=== PATIENT | female | born 1960 | race Caucasian/White ===

== ENCOUNTER 2020-11-22 18:25 | Observation (INO) | payer OTHER ==
--- OUTSIDE RECORDS SUMMARY | 2020-11-22 18:28 | XMS REPORT | Clinical Summary ---
:1960 Author Organization [facility] Address [address] [place] [address] Care Team Providers Name Role Phone Jocy Primary Care Provider Allergies Not on File Medications Not on file Active Problems Not on file Social History Tobacco Use Types Packs/Day Years Used Date Never Assessed Sex Assigned at Date Recorded Not on file Last Filed Vital Signs Not on file Plan of Treatment Not on file Results Not on fileafter 11/22/2019 Insurance Payer Benefit Plan / Subscriber ID Effective Dates Phone Addre ss Type Group [employer] - MGD [employer] HMO POS [id number] 2015-Present HMO/POS CARE QPOS
--- OUTSIDE RECORDS SUMMARY | 2020-11-22 18:29 | XMS REPORT | Continuity of Care Document ---
:1960 Author Organization [facility] t Address [address] [place] [address] Care Team Providers Name Role Phone Jocy Primary Care Physician Payers Payer Name Policy Type Policy Number Effective Date Expiration Date S ource Problems This patient has no known problems. Allergies, Adverse Reactions, Alerts Allergy Allergy Status Severity Reaction(s) Onset Inactive Treating Comm ents Source Name Type Date Date Clinician No Known DA Active U [facility] Allergie 2-21 Clear s 00:00: Garcia [address] [place] [address] Social History Social Habit Start Date Stop Date Quantity Comments Source Sex Assigned At [facility] Medications This patient has no known medications. Procedures This patient has no known procedures. Results Test Description Test Time Test Comments Results Result Comments Source STOMACH,RESECTION 2020-05-09 NOT TUMOR 15:36:00 RUN DATE: 05/09/20 [facility] PAGE 1 RUN TIME: 1536 Specimen Inquiry RUN USER: INTERFACE SINAI IENT: VERA ALMODOVAR LOC: YUSRA U #: [id number] AGE/SX: 60/F ROOM: [facility] RE05/06/20REG DR: Ana Lilia Salazar MD : 56 BED: A DIS: 05/08/20 STATUS: DIS IN TLOC: SPEC #: [id number] RECD: 05/06/20 STATUS: LIA DOWDMartha #: [id number] KANDIS: 05/06/20- SUBM DR: Ana Lilia Salazar MD ENTERED: 05/06/20 SP TYPE: STOM NOT OTHR DR: No Primary or Family Physician Maikel Bartlett MDORDERED: GROSS COPIES TO: No Primary or Family Physician Ana Lilia Salazar MD [address] [place], [place] [address] Maikel Bartlett [place] [address] [address] [place] [address] PROCEDURES: GROSS (05/09/20-1434) TISSUES: STOMACH, NOS - PORTION OF STOMACH CLINICAL HISTORY COLLECTION DATE: 05/06/20 [facility]ES[facility] FINAL DIAGNOSIS Portion of stomach, laparoscopic sleeve gastrectomy: PORTION OF STOMACH, NO PATHOLOGIC ALTERATION DMW/sm D [id number] MACROSCOPIC The specimen is received in formalin, labeled with the patient's name, identified as "portion of stomach", and consists of a portion of stomach measuring 23 cm in length by up to 4.5 cm in diameter. There is scant attached adipose tissue present. The serosa is thorpe-pink and glistening. The specimen CONTINUED ON NEXT PAGE RUN DATE: 05/09/20 [facility] PAGE 2 RUN TIME: 1535 Specimen Inquiry RUN USER: INTERFACE LIZZ Benjamin #: [id number] PATIENT: VERA ALMODOVAR #[id number] (Continued)-------- -------- MACROSCOPIC (Continued) is opened to reveal thorpe-pink glistening mucosa with foci of flattened gastric folds. No mass is identified. Courtesy Booth Cashier sections are in a single cassette. GROSS PERFORMED AT [facility] [address] [place] [address], [place] [address] [phone])[phone] MICROSCOPIC All of the stains, including any controls performed, stain appropriately. MICROSCOPIC PERFORMED AT [facility] [address] [facility], [place] [address] [phone])[phone] PERFORMING SITE Diagnosis performed at: [facility] [address] [place] [address] ------- --------- Signed SIGNATURE ON FILE Shea Donohue MD 05/09/20 1536 END OF REPORT CBC W/AUTO DIFF 2020-05-08 12:11:00 Test Item Value Reference Range Interpretation Comme nts WHITE BLOOD CELL (test code = WBC) 17.0 K/mm3 4.5-12.5 H RED BLOOD CELL (test code = RBC) 4.55 mill/mm3 3.7-5.2 N HEMOGLOBIN (test code = HGB) 13.9 gram/dL 11.5-15.5 N HEMATOCRIT (test code = HCT) 42.3 % 36.0-46.0 N MEAN CELL VOLUME (test code = MCV) 93.0 fL 80-98 N MEAN CELL HGB (test code = MCH) 30.5 picogram 27.0-33.0 N MEAN CELL HGB CONCETRATION (test code = MCHC) 32.9 gram/dL 33.0-36. 0 L RED CELL DISTRIBUTION WIDTH (test code = RDW) 13.5 % 11.6-16. 2 N RED CELL DISTRIBUTION WIDTH SD (test code = 46.4 fL 37.0-51.0 N RDW-SD) PLATELET COUNT (test code = PLT) 270 K/mm3 150-450 N MEAN PLATELET VOLUME (test code = MPV) 10.8 fL 6.7-11.0 N NEUTROPHIL % (test code = NT%) 74.1 % 39.0-69.0 H IMMATURE GRANULOCYTE % (test code = IG%) 0.5 % 0.0-5.0 N LYMPHOCYTE % (test code = LY%) 17.0 % 25.0-55.0 L MONOCYTE % (test code = MO%) 7.6 % 0.0-10.0 N EOSINOPHIL % (test code = EO%) 0.4 % 0.0-5.0 N BASOPHIL % (test code = BA%) 0.4 % 0.0-1.0 N NUCLEATED RBC % (test code = NRBC%) 0.0 % 0-0 N NEUTROPHIL # (test code = NT#) 12.62 K/mm3 1.8-7.7 H IMMATURE GRANULOCYTE # (test code = IG#) 0.08 x10 3/uL 0-0.03 H LYMPHOCYTE # (test code = LY#) 2.90 K/mm3 1.0-5.0 N MONOCYTE # (test code = MO#) 1.29 K/mm3 0-0.8 H EOSINOPHIL # (test code = EO#) 0.07 K/mm3 0.0-0.5 N BASOPHIL # (test code = BA#) 0.06 K/mm3 0.0-0.2 N NUCLEATED RBC # (test code = NRBC#) 0.00 K/mm3 0.0-0.1 N MANUAL DIFF REQUIRED (test code = MDIFF) NO, ONLY SCAN NEEDED DIFFERENTIAL [id number] 12:11:00 Test Item Value Reference Range Interpretation Comments STAIN ACCEPTABILITY (test STAIN ACCEPTABLE code = STN ACCEPTABLE) MORPHOLOGY COMMENT (test NORMAL code = MOC) PLATELET ESTIMATE (test code ADEQUATE = PLTEST) PLATELET MORPHOLOGY (test NORMAL code = PLTMORPH) CBC W/AUTO [id number] 10:26:00 Test Item Value Reference Range Interpretation Comments WHITE BLOOD CELL (test 17.0 K/mm3 4.5-12.5 H code = WBC) RED BLOOD CELL (test code 4.55 mill/mm3 3.7-5.2 N = RBC) HEMOGLOBIN (test code = 13.9 gram/dL 11.5-15.5 N HGB) HEMATOCRIT (test code = 42.3 % 36.0-46.0 N HCT) MEAN CELL VOLUME (test 93.0 fL 80-98 N code = MCV) MEAN CELL HGB (test code 30.5 picogram 27.0-33.0 N = MCH) MEAN CELL HGB 32.9 gram/dL 33.0-36.0 L CONCETRATION (test code = MCHC) RED CELL DISTRIBUTION 13.5 % 11.6-16.2 N WIDTH (test code = RDW) RED CELL DISTRIBUTION 46.4 fL 37.0-51.0 N WIDTH SD (test code = RDW-SD) PLATELET COUNT (test code 270 K/mm3 150-450 N = PLT) MEAN PLATELET VOLUME 10.8 fL 6.7-11.0 N (test code = MPV) NEUTROPHIL % (test code = 74.1 % 39.0-69.0 H NT%) IMMATURE GRANULOCYTE % 0.5 % 0.0-5.0 N (test code = IG%) LYMPHOCYTE % (test code = 17.0 % 25.0-55.0 L LY%) MONOCYTE % (test code = 7.6 % 0.0-10.0 N MO%) EOSINOPHIL % (test code = 0.4 % 0.0-5.0 N EO%) BASOPHIL % (test code = 0.4 % 0.0-1.0 N BA%) NUCLEATED RBC % (test 0.0 % 0-0 N code = NRBC%) NEUTROPHIL # (test code = 12.62 K/mm3 1.8-7.7 H NT#) IMMATURE GRANULOCYTE # 0.08 x10 3/uL 0-0.03 H (test code = IG#) LYMPHOCYTE # (test code = 2.90 K/mm3 1.0-5.0 N LY#) MONOCYTE # (test code = 1.29 K/mm3 0-0.8 H MO#) EOSINOPHIL # (test code = 0.07 K/mm3 0.0-0.5 N EO#) BASOPHIL # (test code = 0.06 K/mm3 0.0-0.2 N BA#) NUCLEATED RBC # (test 0.00 K/mm3 0.0-0.1 N code = NRBC#) MANUAL DIFF REQUIRED NO, ONLY SCAN NEEDED (test code = MDIFF) DIFFERENTIAL [id number] 10:26:00 Test Item Value Reference Range Interpretation Comments STAIN ACCEPTABILITY (test code = STN ACCEPTABLE) CABOT RINGS (test code = CAB) MORPHOLOGY COMMENT (test code = MOC) PLATELET ESTIMATE (test code = PLTEST) PLATELET MORPHOLOGY (test code = PLTMORPH) CBC W/AUTO [id number] 10:26:00 Test Item Value Reference Range Interpretation Comments WHITE BLOOD CELL (test 17.0 K/mm3 4.5-12.5 H code = WBC) RED BLOOD CELL (test code 4.55 mill/mm3 3.7-5.2 N = RBC) HEMOGLOBIN (test code = 13.9 gram/dL 11.5-15.5 N HGB) HEMATOCRIT (test code = 42.3 % 36.0-46.0 N HCT) MEAN CELL VOLUME (test 93.0 fL 80-98 N code = MCV) MEAN CELL HGB (test code 30.5 picogram 27.0-33.0 N = MCH) MEAN CELL HGB 32.9 gram/dL 33.0-36.0 L CONCETRATION (test code = MCHC) RED CELL DISTRIBUTION 13.5 % 11.6-16.2 N WIDTH (test code = RDW) RED CELL DISTRIBUTION 46.4 fL 37.0-51.0 N WIDTH SD (test code = RDW-SD) PLATELET COUNT (test code 270 K/mm3 150-450 N = PLT) MEAN PLATELET VOLUME 10.8 fL 6.7-11.0 N (test code = MPV) NEUTROPHIL % (test code = 74.1 % 39.0-69.0 H NT%) IMMATURE GRANULOCYTE % 0.5 % 0.0-5.0 N (test code = IG%) LYMPHOCYTE % (test code = 17.0 % 25.0-55.0 L LY%) MONOCYTE % (test code = 7.6 % 0.0-10.0 N MO%) EOSINOPHIL % (test code = 0.4 % 0.0-5.0 N EO%) BASOPHIL % (test code = 0.4 % 0.0-1.0 N BA%) NUCLEATED RBC % (test 0.0 % 0-0 N code = NRBC%) NEUTROPHIL # (test code = 12.62 K/mm3 1.8-7.7 H NT#) IMMATURE GRANULOCYTE # 0.08 x10 3/uL 0-0.03 H (test code = IG#) LYMPHOCYTE # (test code = 2.90 K/mm3 1.0-5.0 N LY#) MONOCYTE # (test code = 1.29 K/mm3 0-0.8 H MO#) EOSINOPHIL # (test code = 0.07 K/mm3 0.0-0.5 N EO#) BASOPHIL # (test code = 0.06 K/mm3 0.0-0.2 N BA#) NUCLEATED RBC # (test 0.00 K/mm3 0.0-0.1 N code = NRBC#) MANUAL DIFF REQUIRED NO, ONLY SCAN NEEDED (test code = MDIFF) DIFFERENTIAL [id number] 10:26:00 Test Item Value Reference Range Interpretation Comments STAIN ACCEPTABILITY (test code = STN ACCEPTABLE) CABOT RINGS (test code = CAB) MORPHOLOGY COMMENT (test code = MOC) PLATELET ESTIMATE (test code = PLTEST) PLATELET MORPHOLOGY (test code = PLTMORPH) CBC W/AUTO [id number] 10:26:00 Test Item Value Reference Range Interpretation Comments WHITE BLOOD CELL (test 17.0 K/mm3 4.5-12.5 H code = WBC) RED BLOOD CELL (test code 4.55 mill/mm3 3.7-5.2 N = RBC) HEMOGLOBIN (test code = 13.9 gram/dL 11.5-15.5 N HGB) HEMATOCRIT (test code = 42.3 % 36.0-46.0 N HCT) MEAN CELL VOLUME (test 93.0 fL 80-98 N code = MCV) MEAN CELL HGB (test code 30.5 picogram 27.0-33.0 N = MCH) MEAN CELL HGB 32.9 gram/dL 33.0-36.0 L CONCETRATION (test code = MCHC) RED CELL DISTRIBUTION 13.5 % 11.6-16.2 N WIDTH (test code = RDW) RED CELL DISTRIBUTION 46.4 fL 37.0-51.0 N WIDTH SD (test code = RDW-SD) PLATELET COUNT (test code 270 K/mm3 150-450 N = PLT) MEAN PLATELET VOLUME 10.8 fL 6.7-11.0 N (test code = MPV) NEUTROPHIL % (test code = 74.1 % 39.0-69.0 H NT%) IMMATURE GRANULOCYTE % 0.5 % 0.0-5.0 N (test code = IG%) LYMPHOCYTE % (test code = 17.0 % 25.0-55.0 L LY%) MONOCYTE % (test code = 7.6 % 0.0-10.0 N MO%) EOSINOPHIL % (test code = 0.4 % 0.0-5.0 N EO%) BASOPHIL % (test code = 0.4 % 0.0-1.0 N BA%) NUCLEATED RBC % (test 0.0 % 0-0 N code = NRBC%) NEUTROPHIL # (test code = 12.62 K/mm3 1.8-7.7 H NT#) IMMATURE GRANULOCYTE # 0.08 x10 3/uL 0-0.03 H (test code = IG#) LYMPHOCYTE # (test code = 2.90 K/mm3 1.0-5.0 N LY#) MONOCYTE # (test code = 1.29 K/mm3 0-0.8 H MO#) EOSINOPHIL # (test code = 0.07 K/mm3 0.0-0.5 N EO#) BASOPHIL # (test code = 0.06 K/mm3 0.0-0.2 N BA#) NUCLEATED RBC # (test 0.00 K/mm3 0.0-0.1 N code = NRBC#) MANUAL DIFF REQUIRED NO, ONLY SCAN NEEDED (test code = MDIFF) DIFFERENTIAL [id number] 10:26:00 Test Item Value Reference Range Interpretation Comments STAIN ACCEPTABILITY (test code = STN ACCEPTABLE) MORPHOLOGY COMMENT (test code = MOC) PLATELET ESTIMATE (test code = PLTEST) PLATELET MORPHOLOGY (test code = PLTMORPH) CBC W/AUTO [id number] 10:26:00 Test Item Value Reference Range Interpretation Comments WHITE BLOOD CELL (test 17.0 K/mm3 4.5-12.5 H code = WBC) RED BLOOD CELL (test code 4.55 mill/mm3 3.7-5.2 N = RBC) HEMOGLOBIN (test code = 13.9 gram/dL 11.5-15.5 N HGB) HEMATOCRIT (test code = 42.3 % 36.0-46.0 N HCT) MEAN CELL VOLUME (test 93.0 fL 80-98 N code = MCV) MEAN CELL HGB (test code 30.5 picogram 27.0-33.0 N = MCH) MEAN CELL HGB 32.9 gram/dL 33.0-36.0 L CONCETRATION (test code = MCHC) RED CELL DISTRIBUTION 13.5 % 11.6-16.2 N WIDTH (test code = RDW) RED CELL DISTRIBUTION 46.4 fL 37.0-51.0 N WIDTH SD (test code = RDW-SD) PLATELET COUNT (test code 270 K/mm3 150-450 N = PLT) MEAN PLATELET VOLUME 10.8 fL 6.7-11.0 N (test code = MPV) NEUTROPHIL % (test code = 74.1 % 39.0-69.0 H NT%) IMMATURE GRANULOCYTE % 0.5 % 0.0-5.0 N (test code = IG%) LYMPHOCYTE % (test code = 17.0 % 25.0-55.0 L LY%) MONOCYTE % (test code = 7.6 % 0.0-10.0 N MO%) EOSINOPHIL % (test code = 0.4 % 0.0-5.0 N EO%) BASOPHIL % (test code = 0.4 % 0.0-1.0 N BA%) NUCLEATED RBC % (test 0.0 % 0-0 N code = NRBC%) NEUTROPHIL # (test code = 12.62 K/mm3 1.8-7.7 H NT#) IMMATURE GRANULOCYTE # 0.08 x10 3/uL 0-0.03 H (test code = IG#) LYMPHOCYTE # (test code = 2.90 K/mm3 1.0-5.0 N LY#) MONOCYTE # (test code = 1.29 K/mm3 0-0.8 H MO#) EOSINOPHIL # (test code = 0.07 K/mm3 0.0-0.5 N EO#) BASOPHIL # (test code = 0.06 K/mm3 0.0-0.2 N BA#) NUCLEATED RBC # (test 0.00 K/mm3 0.0-0.1 N code = NRBC#) MANUAL DIFF REQUIRED NO, ONLY SCAN NEEDED (test code = MDIFF) DIFFERENTIAL [id number] 10:26:00 Test Item Value Reference Range Interpretation Comments STAIN ACCEPTABILITY (test code = STN ACCEPTABLE) CABOT RINGS (test code = CAB) MORPHOLOGY COMMENT (test code = MOC) PLATELET ESTIMATE (test code = PLTEST) PLATELET MORPHOLOGY (test code = PLTMORPH) CBC W/AUTO [id number] 10:20:00 Test Item Value Reference Range Interpretation Comments WHITE BLOOD CELL (test code = K/mm3 4.5-12.5 WBC) RED BLOOD CELL (test code = RBC) mill/mm3 3.7-5.2 HEMOGLOBIN (test code = HGB) 13.9 gram/dL 11.5-15.5 N HEMATOCRIT (test code = HCT) 42.3 % 36.0-46.0 N MEAN CELL VOLUME (test code = fL 80-98 MCV) MEAN CELL HGB (test code = MCH) picogram 27.0-33.0 MEAN CELL HGB CONCETRATION (test gram/dL 33.0-36.0 code = MCHC) RED CELL DISTRIBUTION WIDTH % 11.6-16.2 (test code = RDW) RED CELL DISTRIBUTION WIDTH SD fL 37.0-51.0 (test code = RDW-SD) PLATELET COUNT (test code = PLT) K/mm3 150-450 MEAN PLATELET VOLUME (test code fL 6.7-11.0 = MPV) NEUTROPHIL % (test code = NT%) % 39.0-69.0 IMMATURE GRANULOCYTE % (test % 0.0-5.0 code = IG%) LYMPHOCYTE % (test code = LY%) % 25.0-55.0 MONOCYTE % (test code = MO%) % 0.0-10.0 EOSINOPHIL % (test code = EO%) % 0.0-5.0 BASOPHIL % (test code = BA%) % 0.0-1.0 NEUTROPHIL # (test code = NT#) K/mm3 1.8-7.7 LYMPHOCYTE # (test code = LY#) K/mm3 1.0-5.0 MONOCYTE # (test code = MO#) K/mm3 0-0.8 EOSINOPHIL # (test code = EO#) K/mm3 0.0-0.5 BASOPHIL # (test code = BA#) K/mm3 0.0-0.2 BASIC METABOLIC [id number] 05:26:00 Test Item Value Reference Range Interpretation Comments SODIUM (test code = 140 mmol/L 136-145 N NA) POTASSIUM (test code 4.3 mmol/L 3.5-5.1 N = K) CHLORIDE (test code = 106.0 mmol/L 98-107 N CL) CARBON DIOXIDE (test 30.0 mmol/L 21-32 N code = CO2) ANION GAP (test code 8.3 10-20 L = GAP) GLUCOSE (test code = 132 mg/dL 74-106 H GLU) BLOOD UREA NITROGEN 12 mg/dL 7-18 N (test code = BUN) GLOMERULAR FILTRATION > 60 mL/min >=60 Estima aminata GFR by RATE (test code = using Ch[place] fied MDRD GFR) formula.Chronic kidney disease is defined as [facility] er kidney damageor GFR <60 mL/min/1.73 m2 for >3 months. CREATININE (test code 0.80 mg/dL 0.55-1.02 N Note change in = CREAT) reference range due to change in reagent. BUN/CREATININE RATIO 14.5 10-20 N (test code = BUN/CREA) CALCIUM (test code = 8.3 mg/dL 8.5-10.1 L CA) BASIC METABOLIC [id number] 05:16:00 Test Item Value Reference Range Interpretation Comments SODIUM (test code = NA) 140 mmol/L 136-145 N POTASSIUM (test code = K) 4.3 mmol/L 3.5-5.1 N CHLORIDE (test code = CL) 106.0 mmol/L 98-107 N CARBON DIOXIDE (test code = CO2) mmol/L 21-32 ANION GAP (test code = GAP) 10-20 GLUCOSE (test code = GLU) mg/dL 74-106 BLOOD UREA NITROGEN (test code = mg/dL 7-18 BUN) GLOMERULAR FILTRATION RATE (test mL/min >=60 code = GFR) CREATININE (test code = CREAT) mg/dL 0.55-1.02 BUN/CREATININE RATIO (test code 10-20 = BUN/CREA) CALCIUM (test code = CA) mg/dL 8.5-10.1 CBC W/AUTO [id number] 05:12:00 Test Item Value Reference Range Interpretation Comments WHITE BLOOD CELL (test code = 19.7 K/mm3 4.5-12.5 H WBC) RED BLOOD CELL (test code = 4.73 mill/mm3 3.7-5.2 N RBC) HEMOGLOBIN (test code = HGB) 14.1 gram/dL 11.5-15.5 N HEMATOCRIT (test code = HCT) 44.4 % 36.0-46.0 N MEAN CELL VOLUME (test code = 93.9 fL 80-98 N MCV) MEAN CELL HGB (test code = MCH) 29.8 picogram 27.0-33.0 N MEAN CELL HGB CONCETRATION 31.8 gram/dL 33.0-36.0 L (test code = MCHC) RED CELL DISTRIBUTION WIDTH 13.3 % 11.6-16.2 N (test code = RDW) RED CELL DISTRIBUTION WIDTH SD 45.8 fL 37.0-51.0 N (test code = RDW-SD) PLATELET COUNT (test code = 289 K/mm3 150-450 N PLT) MEAN PLATELET VOLUME (test code 10.4 fL 6.7-11.0 N = MPV) NEUTROPHIL % (test code = NT%) 84.2 % 39.0-69.0 H IMMATURE GRANULOCYTE % (test 0.5 % 0.0-5.0 N code = IG%) LYMPHOCYTE % (test code = LY%) 8.2 % 25.0-55.0 L MONOCYTE % (test code = MO%) 7.0 % 0.0-10.0 N EOSINOPHIL % (test code = EO%) 0.0 % 0.0-5.0 N BASOPHIL % (test code = BA%) 0.1 % 0.0-1.0 N NUCLEATED RBC % (test code = 0.0 % 0-0 N NRBC%) NEUTROPHIL # (test code = NT#) 16.58 K/mm3 1.8-7.7 H IMMATURE GRANULOCYTE # (test 0.09 x10 3/uL 0-0.03 H code = IG#) LYMPHOCYTE # (test code = LY#) 1.62 K/mm3 1.0-5.0 N MONOCYTE # (test code = MO#) 1.37 K/mm3 0-0.8 H EOSINOPHIL # (test code = EO#) 0.00 K/mm3 0.0-0.5 N BASOPHIL # (test code = BA#) 0.02 K/mm3 0.0-0.2 N NUCLEATED RBC # (test code = 0.00 K/mm3 0.0-0.1 N NRBC#) MANUAL DIFF REQUIRED (test code NO = MDIFF) CBC W/AUTO [id number] 05:08:00 Test Item Value Reference Range Interpretation Comments WHITE BLOOD CELL (test code = K/mm3 4.5-12.5 WBC) RED BLOOD CELL (test code = RBC) mill/mm3 3.7-5.2 HEMOGLOBIN (test code = HGB) 14.1 gram/dL 11.5-15.5 N HEMATOCRIT (test code = HCT) 44.4 % 36.0-46.0 N MEAN CELL VOLUME (test code = fL 80-98 MCV) MEAN CELL HGB (test code = MCH) picogram 27.0-33.0 MEAN CELL HGB CONCETRATION (test gram/dL 33.0-36.0 code = MCHC) RED CELL DISTRIBUTION WIDTH % 11.6-16.2 (test code = RDW) RED CELL DISTRIBUTION WIDTH SD fL 37.0-51.0 (test code = RDW-SD) PLATELET COUNT (test code = PLT) K/mm3 150-450 MEAN PLATELET VOLUME (test code fL 6.7-11.0 = MPV) NEUTROPHIL % (test code = NT%) % 39.0-69.0 IMMATURE GRANULOCYTE % (test % 0.0-5.0 code = IG%) LYMPHOCYTE % (test code = LY%) % 25.0-55.0 MONOCYTE % (test code = MO%) % 0.0-10.0 EOSINOPHIL % (test code = EO%) % 0.0-5.0 BASOPHIL % (test code = BA%) % 0.0-1.0 NEUTROPHIL # (test code = NT#) K/mm3 1.8-7.7 LYMPHOCYTE # (test code = LY#) K/mm3 1.0-5.0 MONOCYTE # (test code = MO#) K/mm3 0-0.8 EOSINOPHIL # (test code = EO#) K/mm3 0.0-0.5 BASOPHIL # (test code = BA#) K/mm3 0.0-0.2 [id number] 09:08:00 Test Item Value Reference Range Interpretation Comments GLUBED (test code = 104 mg/dL 74-106 N Performe d by certified GLUBED) press operator printing at [facility] URINALYSIS [id number] 16:56:00 Test Item Value Reference Range Interpretation Comments UA COLOR (test code = Light-Yellow YELLOW COLU) UA APPEARANCE (test code CLEAR CLEAR = APPU) UA GLUCOSE DIPSTICK (test NEGATIVE mg/dL NEGATIVE code = DGLUU) UA BILIRUBIN DIPSTICK NEGATIVE mg/dL NEGATIVE (test code = BILU) UA KETONE DIPSTICK (test NEGATIVE mg/dL NEGATIVE code = KETU) UA SPECIFIC GRAVITY (test 1.013 1.001-1.035 code = SGU) UA BLOOD DIPSTICK (test Negative mg/dL NEGATIVE code = JOHANA) UA PH DIPSTICK (test code 6.5 5.0-8.0 = KRISTIN) UA PROTEIN DIPSTICK (test NEGATIVE mg/dL NEGATIVE code = PROU) UA UROBILINIOGEN DIPSTICK Normal mg/dL NEGATIVE (test code = URO) UA NITRITE DIPSTICK (test NEGATIVE NEGATIVE code = CONNOR) UA LEUKOCYTE ESTERASE W 75 Andrés/uL (1+) NEGATIVE A REFLEX (test code = Andrés/uL LEUUR) UA WBC (test code = WBCU) 0-5 per HPF 0-5 UA RBC (test code = RBCU) 0-2 #/HPF 0-5 UA EPITHELIAL CELLS (test FEW per HPF FEW code = EPIU) UA BACTERIA (test code = FEW #/HPF NONE A BACU) UA MUCUS (test code = FEW #/LPF FEW MUCU) Urine Source? Clean CatchURINALYSIS [id number] 16:54:00 Test Item Value Reference Range Interpretation Comments UA COLOR (test code = Light-Yellow YELLOW COLU) UA APPEARANCE (test code CLEAR CLEAR = APPU) UA GLUCOSE DIPSTICK (test NEGATIVE mg/dL NEGATIVE code = DGLUU) UA BILIRUBIN DIPSTICK NEGATIVE mg/dL NEGATIVE (test code = BILU) UA KETONE DIPSTICK (test NEGATIVE mg/dL NEGATIVE code = KETU) UA SPECIFIC GRAVITY (test 1.013 1.001-1.035 code = SGU) UA BLOOD DIPSTICK (test Negative mg/dL NEGATIVE code = JOHANA) UA PH DIPSTICK (test code 6.5 5.0-8.0 = KRISTIN) UA PROTEIN DIPSTICK (test NEGATIVE mg/dL NEGATIVE code = PROU) UA UROBILINIOGEN DIPSTICK Normal mg/dL NEGATIVE (test code = URO) UA NITRITE DIPSTICK (test NEGATIVE NEGATIVE code = CONNOR) UA LEUKOCYTE ESTERASE W 75 Andrés/uL (1+) NEGATIVE A REFLEX (test code = Andrés/uL LEUUR) UA WBC (test code = WBCU) per HPF 0-5 UA RBC (test code = RBCU) per HPF 0-5 UA EPITHELIAL CELLS (test per HPF Few code = EPIU) UA BACTERIA (test code = per HPF NONE BACU) Urine Source? Clean CatchCOMPREHENSIVE METABOLIC [id number] 16:34:00 Test Item Value Reference Range Interpretation Comments SODIUM (test code = 139 mmol/L 136-145 N NA) POTASSIUM (test code = 3.6 mmol/L 3.5-5.1 N K) CHLORIDE (test code = 106.0 mmol/L 98-107 N CL) CARBON DIOXIDE (test 25.0 mmol/L 21-32 N code = CO2) ANION GAP (test code = 11.6 10-20 N GAP) GLUCOSE (test code = 93 mg/dL 74-106 N GLU) BLOOD UREA NITROGEN 19 mg/dL 7-18 H (test code = BUN) GLOMERULAR FILTRATION > 60 mL/min >=60 Estima aminata GFR by RATE (test code = GFR) using Modified MDRD formula.Chronic kidney disease is defined as eith er kidney damageor GFR <60 mL/min/1.73 m2 for >3 months. CREATININE (test code 0.90 mg/dL 0.55-1.02 N Note change in = CREAT) reference range due to change in reagent. BUN/CREATININE RATIO 20.2 10-20 H (test code = BUN/CREA) TOTAL PROTEIN (test 8.1 gram/dL 6.4-8.2 N code = PROT) ALBUMIN (test code = 3.7 g/dL 3.4-5.0 N ALB) GLOBULIN (test code = 4.4 gram/dL 2.7-4.2 H GLOB) ALBUMIN/GLOBULIN RATIO 0.8 0.75-1.50 N (test code = A/G) CALCIUM (test code = 9.1 mg/dL 8.5-10.1 N CA) BILIRUBIN TOTAL (test 0.40 mg/dL 0.0-1.0 N code = BILT) SGOT/AST (test code = 20 IUnit/L 15-37 N AST) SGPT/ALT (test code = 27 IUnit/L 12-78 N ALT) ALKALINE PHOSPHATASE 97 IUnit/L 45-117 N Note change in TOTAL (test code = reference range due ALKP) to change in reagent. Coronavirus 2019 nCoV [id number] 16:24:00 Test Item Value Reference Range Interpretation Comments Coronavirus 2019 nCoV Bedside (test Negative code = [id number]) COMPREHENSIVE METABOLIC [id number] 16:20:00 Test Item Value Reference Range Interpretation Comments SODIUM (test code = NA) 139 mmol/L 136-145 N POTASSIUM (test code = K) 3.6 mmol/L 3.5-5.1 N CHLORIDE (test code = CL) 106.0 mmol/L 98-107 N CARBON DIOXIDE (test code = CO2) mmol/L 21-32 ANION GAP (test code = GAP) 10-20 GLUCOSE (test code = GLU) mg/dL 74-106 BLOOD UREA NITROGEN (test code = mg/dL 7-18 BUN) GLOMERULAR FILTRATION RATE (test mL/min >=60 code = GFR) CREATININE (test code = CREAT) mg/dL 0.55-1.02 BUN/CREATININE RATIO (test code 10-20 = BUN/CREA) TOTAL PROTEIN (test code = PROT) gram/dL 6.4-8.2 ALBUMIN (test code = ALB) g/dL 3.4-5.0 GLOBULIN (test code = GLOB) gram/dL 2.7-4.2 ALBUMIN/GLOBULIN RATIO (test 0.75-1.50 code = A/G) CALCIUM (test code = CA) mg/dL 8.5-10.1 BILIRUBIN TOTAL (test code = mg/dL 0.0-1.0 BILT) SGOT/AST (test code = AST) IUnit/L 15-37 SGPT/ALT (test code = ALT) IUnit/L 12-78 ALKALINE PHOSPHATASE TOTAL (test IUnit/L 45-117 code = ALKP) HCG SERUM [id number] 16:18:00 Test Item Value Reference Range Interpretation Comments HCG SERUM QUAL (test NEGATIVE NEGATIVE This HC GQL test is NOT code = HCGQL) applicable for MALE patients.Check with nurse about probable order error.If Tumor Marker Test needed, nu rse should order test "HCG TU"(Test #[id number])---- - PROTHROMBIN [id number] 16:04:00 Test Item Value Reference Range Interpretation Comments PROTHROMBIN TIME 10.6 seconds 9.0-14.0 N PATIENT (test code = PTP) INTERNATIONAL NORMAL 0.9 0.8-1.2 N The the rapeutic range RATIO (test code = for oral INR) anticoagulant t herapy formost indicat ions is an internati onal normalized rati o (INR)of between 2.0 and 3.0. The recommended therapeutic INR range for various cli nical situations is l isted below: Clinical Situat ion INR range Pulmonary embol ism treatment (2.0-3.0)Venou s thrombosis treatmentVenous thrombosis prophylaxis (hi gh risk surgery)Prevent ion of systemic emboli sm from: A cute myocardial infa rction Valvula r heart disease Atrial fibrilla tion Mechanical pros thetic heart valves (2.5-3.5) IS PATIENT ON ANTICOAGULANTS? NTHROMBOPLASTIN TIME [id number] 16:04:00 Test Item Value Reference Range Interpretation Comments THROMBOPLASTIN TIME PARTIAL 36.9 seconds 23.0-37.0 N (test code = PTT) IS PATIENT ON ANTICOAGULANTS? NCBC W/AUTO [id number] 15:58:00 Test Item Value Reference Range Interpretation Comments WHITE BLOOD CELL (test code = 11.6 K/mm3 4.5-12.5 N WBC) RED BLOOD CELL (test code = 4.88 mill/mm3 3.7-5.2 N RBC) HEMOGLOBIN (test code = HGB) 14.7 gram/dL 11.5-15.5 N HEMATOCRIT (test code = HCT) 45.5 % 36.0-46.0 N MEAN CELL VOLUME (test code = 93.2 fL 80-98 N MCV) MEAN CELL HGB (test code = MCH) 30.1 picogram 27.0-33.0 N MEAN CELL HGB CONCETRATION 32.3 gram/dL 33.0-36.0 L (test code = MCHC) RED CELL DISTRIBUTION WIDTH 13.3 % 11.6-16.2 N (test code = RDW) RED CELL DISTRIBUTION WIDTH SD 45.1 fL 37.0-51.0 N (test code = RDW-SD) PLATELET COUNT (test code = 302 K/mm3 150-450 N PLT) MEAN PLATELET VOLUME (test code 9.8 fL 6.7-11.0 N = MPV) NEUTROPHIL % (test code = NT%) 59.8 % 39.0-69.0 N IMMATURE GRANULOCYTE % (test 0.3 % 0.0-5.0 N code = IG%) LYMPHOCYTE % (test code = LY%) 31.1 % 25.0-55.0 N MONOCYTE % (test code = MO%) 7.0 % 0.0-10.0 N EOSINOPHIL % (test code = EO%) 1.1 % 0.0-5.0 N BASOPHIL % (test code = BA%) 0.7 % 0.0-1.0 N NUCLEATED RBC % (test code = 0.0 % 0-0 N NRBC%) NEUTROPHIL # (test code = NT#) 6.92 K/mm3 1.8-7.7 N IMMATURE GRANULOCYTE # (test 0.03 x10 3/uL 0-0.03 N code = IG#) LYMPHOCYTE # (test code = LY#) 3.60 K/mm3 1.0-5.0 N MONOCYTE # (test code = MO#) 0.81 K/mm3 0-0.8 H EOSINOPHIL # (test code = EO#) 0.13 K/mm3 0.0-0.5 N BASOPHIL # (test code = BA#) 0.08 K/mm3 0.0-0.2 N NUCLEATED RBC # (test code = 0.00 K/mm3 0.0-0.1 N NRBC#) MANUAL DIFF REQUIRED (test code NO = MDIFF) CBC W/AUTO [id number] 15:55:00 Test Item Value Reference Range Interpretation Comments WHITE BLOOD CELL (test code = K/mm3 4.5-12.5 WBC) RED BLOOD CELL (test code = RBC) mill/mm3 3.7-5.2 HEMOGLOBIN (test code = HGB) 14.7 gram/dL 11.5-15.5 N HEMATOCRIT (test code = HCT) 45.5 % 36.0-46.0 N MEAN CELL VOLUME (test code = fL 80-98 MCV) MEAN CELL HGB (test code = MCH) picogram 27.0-33.0 MEAN CELL HGB CONCETRATION (test gram/dL 33.0-36.0 code = MCHC) RED CELL DISTRIBUTION WIDTH % 11.6-16.2 (test code = RDW) RED CELL DISTRIBUTION WIDTH SD fL 37.0-51.0 (test code = RDW-SD) PLATELET COUNT (test code = PLT) K/mm3 150-450 MEAN PLATELET VOLUME (test code fL 6.7-11.0 = MPV) NEUTROPHIL % (test code = NT%) % 39.0-69.0 IMMATURE GRANULOCYTE % (test % 0.0-5.0 code = IG%) LYMPHOCYTE % (test code = LY%) % 25.0-55.0 MONOCYTE % (test code = MO%) % 0.0-10.0 EOSINOPHIL % (test code = EO%) % 0.0-5.0 BASOPHIL % (test code = BA%) % 0.0-1.0 NEUTROPHIL # (test code = NT#) K/mm3 1.8-7.7 LYMPHOCYTE # (test code = LY#) K/mm3 1.0-5.0 MONOCYTE # (test code = MO#) K/mm3 0-0.8 EOSINOPHIL # (test code = EO#) K/mm3 0.0-0.5 BASOPHIL # (test code = BA#) K/mm3 0.0-0.2 - XR CHEST 2 [id number] 14:46:00 FAX: Ana Lilia Burks MD [phone] [place]: B St: PRE Name: VERA ALMODOVAR [facility] : 1960 Age/S: 60/F [address] [facility] Unit#: [id number] Loc: [place] [address] Phys: Ana Lilia Salazar MD Acct: [id number] Dis Date: Status: PRE IN PHONE #: [phone] Exam Date: 05/05/2020 1440 FAX #: [phone] Reason: PREOP EXAMS: CPT CODE: [id number] XR CHEST 2 V 53235 EXAM: Chest X-ray, 2 views; CLINICAL HISTORY: E 66.01, preop; FINDINGS: The lungs are clear, no infiltrates, no edema; noeffusions; no pneumothorax; normal cardiomediastinal silhouette. No change compared witha study from January 08, 2020. IMPRESSION: Normal chest x-ray. Location code: [facility] at 1446 Reported and signed by: Jay Singh M.D. CC: Ana Lilia Salazar MD Technologist: Brianna HART(R) Trnscrd Date/Time/By: 05/05/2020 ([id number]) : By: KeW Orig Print D/T: S: 05/05/2020 (6285) PAGE 1 Signed ReportDEVICE 2020-01-26 15:28:00 RUN DATE: 01/26/20 [facility] PAGE 1 RUN TIME: 1528 Specimen Inquiry RUN USER: INTERFACE PATIENT: VERA ALMODOVAR LOC: JAMIN #: [id number] AGE/SX: 59/F ROOM: RE01/22/20REG DR: Ana Lilia Salazar MD : 56 BED: DIS: STATUS: [facility] [place] TLOC: SPEC #: [id number] RECD: 01/22/20 STATUS: LIA 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 The specimen consists of a white plastic port with attached tubing. The port measures 2.5 cm in diameter with a thicknessof up to 1.2 cm. The attached tubing measures 18.5 cm in length with diameter up to 0.3 cm. Alsoreceived is a white plastic band with attached tubing. The band segment measures 13.5 cm in length with diameter up to 1.3 cm and thickness of up to 0.5 cm. The tubing measures 15.5 cm in length with diameter up to 0.3 cm. The specimen is for gross identification. GROSS PERFORMED AT [facility] CONTINUED ON NEXT PAGE --- ---------RUN DATE: 01/26/20 [facility] PAGE 2 RUN TIME: 1528 Specimen Inquiry RUN USER: INTERFACE SPEC #: [id number] PATIENT: VERA ALMODOVAR #[id number] (Continued) MACROSCOPIC (Continued) [facility] [address] [place] [address], [place] [address] [phone] Signed SIGNATURE ON FILE Kevin Luna MD 01/26/20 1528 END OF REPORT COMPREHENSIVE METABOLIC [id number] 11:44:00 Test Item Value Reference Range Interpretation Comments SODIUM (test code = 140 mmol/L 136-145 N NA) POTASSIUM (test code = 3.8 mmol/L 3.5-5.1 N K) CHLORIDE (test code = 105.0 mmol/L 98-107 N CL) CARBON DIOXIDE (test 29.0 mmol/L 21-32 N code = CO2) ANION GAP (test code = 9.8 10-20 L GAP) GLUCOSE (test code = 100 mg/dL 74-106 N GLU) BLOOD UREA NITROGEN 14 mg/dL 7-18 N (test code = BUN) GLOMERULAR FILTRATION > 60 mL/min >=60 Estima aminata GFR by RATE (test code = GFR) using Modified MDRD formula.Chronic kidney disease is defined as ei er kidney damageor GFR <60 mL/min/1.73 m2 for >3 months. CREATININE (test code 0.90 mg/dL 0.55-1.02 N Note change in = CREAT) reference range due to change in reagent. BUN/CREATININE RATIO 15.6 10-20 N (test code = BUN/CREA) TOTAL PROTEIN (test 7.6 gram/dL 6.4-8.2 N code = PROT) ALBUMIN (test code = 3.5 g/dL 3.4-5.0 N ALB) GLOBULIN (test code = 4.1 gram/dL 2.7-4.2 N GLOB) ALBUMIN/GLOBULIN RATIO 0.9 0.75-1.50 N (test code = A/G) CALCIUM (test code = 8.7 mg/dL 8.5-10.1 N CA) BILIRUBIN TOTAL (test 0.40 mg/dL 0.0-1.0 N code = BILT) SGOT/AST (test code = 15 IUnit/L 15-37 N AST) SGPT/ALT (test code = 27 IUnit/L 12-78 N ALT) ALKALINE PHOSPHATASE 97 IUnit/L 45-117 N Note change in TOTAL (test code = reference range due ALKP) to change in reagent. HCG SERUM [id number] 11:44:00 Test Item Value Reference Range Interpretation Comments HCG SERUM QUAL (test NEGATIVE NEGATIVE This HC GQL test is NOT code = HCGQL) applicable for MALE patients.Check with nurse about probable order error.If Tumor Marker Test needed, nu rse should order test "HCG TU"(Test #550.86480)---- - URINALYSIS [id number] 11:31:00 Test Item Value Reference Range Interpretation Comments UA COLOR (test code = YELLOW YELLOW COLU) UA APPEARANCE (test code CLEAR CLEAR = APPU) UA GLUCOSE DIPSTICK (test NEGATIVE mg/dL NEGATIVE code = DGLUU) UA BILIRUBIN DIPSTICK NEGATIVE NEGATIVE (test code = BILU) UA KETONE DIPSTICK (test NEGATIVE mg/dL NEGATIVE code = KETU) UA SPECIFIC GRAVITY (test 1.015 1.001-1.035 code = SGU) UA BLOOD DIPSTICK (test NEGATIVE NEGATIVE code = JOHANA) UA PH DIPSTICK (test code 7.5 5.0-8.0 = KRISTIN) UA PROTEIN DIPSTICK (test NEGATIVE mg/dL Neg-15 code = PROU) UA UROBILINIOGEN DIPSTICK 0.2 mg/dL 0.0-0.2 (test code = URO) UA NITRITE DIPSTICK (test NEGATIVE NEGATIVE code = CONNOR) UA LEUKOCYTE ESTERASE W 2+ NEGATIVE A REFLEX (test code = LEUUR) UA WBC (test code = WBCU) 21-50 per HPF 0-5 A UA RBC (test code = RBCU) 0-2 #/HPF 0-5 UA EPITHELIAL CELLS (test Many (>10/hpf) per FEW code = EPIU) HPF UA BACTERIA (test code = FEW per HPF NONE BACU) UA MUCUS (test code = FEW #/LPF FEW MUCU) COMPREHENSIVE METABOLIC [id number] 11:28:00 Test Item Value Reference Range Interpretation Comments SODIUM (test code = NA) 140 mmol/L 136-145 N POTASSIUM (test code = K) 3.8 mmol/L 3.5-5.1 N CHLORIDE (test code = CL) 105.0 mmol/L 98-107 N CARBON DIOXIDE (test code = CO2) mmol/L 21-32 ANION GAP (test code = GAP) 10-20 GLUCOSE (test code = GLU) mg/dL 74-106 BLOOD UREA NITROGEN (test code = mg/dL 7-18 BUN) GLOMERULAR FILTRATION RATE (test mL/min >=60 code = GFR) CREATININE (test code = CREAT) mg/dL 0.55-1.02 BUN/CREATININE RATIO (test code 10-20 = BUN/CREA) TOTAL PROTEIN (test code = PROT) gram/dL 6.4-8.2 ALBUMIN (test code = ALB) g/dL 3.4-5.0 GLOBULIN (test code = GLOB) gram/dL 2.7-4.2 ALBUMIN/GLOBULIN RATIO (test 0.75-1.50 code = A/G) CALCIUM (test code = CA) mg/dL 8.5-10.1 BILIRUBIN TOTAL (test code = mg/dL 0.0-1.0 BILT) SGOT/AST (test code = AST) IUnit/L 15-37 SGPT/ALT (test code = ALT) IUnit/L 12-78 ALKALINE PHOSPHATASE TOTAL (test IUnit/L 45-117 code = ALKP) HCG SERUM [id number] 11:28:00 Test Item Value Reference Range Interpretation Comments HCG SERUM QUAL (test NEGATIVE NEGATIVE This HC GQL test is NOT code = HCGQL) applicable for MALE patients.Check with nurse about probable order error.If Tumor Marker Test needed, nu rse should order test "HCG TU"(Test #[id number])---- - COMPREHENSIVE METABOLIC [id number] 11:27:00 Test Item Value Reference Range Interpretation Comments SODIUM (test code = NA) 140 mmol/L 136-145 N POTASSIUM (test code = K) 3.8 mmol/L 3.5-5.1 N CHLORIDE (test code = CL) 105.0 mmol/L 98-107 N CARBON DIOXIDE (test code = CO2) mmol/L 21-32 ANION GAP (test code = GAP) 10-20 GLUCOSE (test code = GLU) mg/dL 74-106 BLOOD UREA NITROGEN (test code = mg/dL 7-18 BUN) GLOMERULAR FILTRATION RATE (test mL/min >=60 code = GFR) CREATININE (test code = CREAT) mg/dL 0.55-1.02 BUN/CREATININE RATIO (test code 10-20 = BUN/CREA) TOTAL PROTEIN (test code = PROT) gram/dL 6.4-8.2 ALBUMIN (test code = ALB) g/dL 3.4-5.0 GLOBULIN (test code = GLOB) gram/dL 2.7-4.2 ALBUMIN/GLOBULIN RATIO (test 0.75-1.50 code = A/G) CALCIUM (test code = CA) mg/dL 8.5-10.1 BILIRUBIN TOTAL (test code = mg/dL 0.0-1.0 BILT) SGOT/AST (test code = AST) IUnit/L 15-37 SGPT/ALT (test code = ALT) IUnit/L 12-78 ALKALINE PHOSPHATASE TOTAL (test IUnit/L 45-117 code = ALKP) HCG SERUM [id number] 11:27:00 Test Item Value Reference Range Interpretation Comments HCG SERUM QUAL (test code = HCGQL) NEGATIVE URINALYSIS [id number] 11:26:00 Test Item Value Reference Range Interpretation Comments UA COLOR (test code = COLU) YELLOW YELLOW UA APPEARANCE (test code = CLEAR CLEAR APPU) UA GLUCOSE DIPSTICK (test code NEGATIVE mg/dL NEGATIVE = DGLUU) UA BILIRUBIN DIPSTICK (test NEGATIVE NEGATIVE code = BILU) UA KETONE DIPSTICK (test code NEGATIVE mg/dL NEGATIVE = KETU) UA SPECIFIC GRAVITY (test code 1.015 1.001-1.035 = SGU) UA BLOOD DIPSTICK (test code = NEGATIVE NEGATIVE JOHANA) UA PH DIPSTICK (test code = 7.5 5.0-8.0 KRISTIN) UA PROTEIN DIPSTICK (test code NEGATIVE mg/dL Neg-15 = PROU) UA UROBILINIOGEN DIPSTICK 0.2 mg/dL 0.0-0.2 (test code = URO) UA NITRITE DIPSTICK (test code NEGATIVE NEGATIVE = CONNOR) UA LEUKOCYTE ESTERASE W REFLEX 2+ NEGATIVE A (test code = LEUUR) UA WBC (test code = WBCU) per HPF 0-5 UA RBC (test code = RBCU) per HPF 0-5 UA EPITHELIAL CELLS (test code per HPF Few = EPIU) UA BACTERIA (test code = BACU) per HPF NONE URINALYSIS [id number] 11:26:00 Test Item Value Reference Range Interpretation Comments UA COLOR (test code = COLU) YELLOW YELLOW UA APPEARANCE (test code = CLEAR CLEAR APPU) UA GLUCOSE DIPSTICK (test code NEGATIVE mg/dL NEGATIVE = DGLUU) UA BILIRUBIN DIPSTICK (test NEGATIVE NEGATIVE code = BILU) UA KETONE DIPSTICK (test code NEGATIVE mg/dL NEGATIVE = KETU) UA SPECIFIC GRAVITY (test code 1.015 1.001-1.035 = SGU) UA BLOOD DIPSTICK (test code = NEGATIVE NEGATIVE JOHANA) UA PH DIPSTICK (test code = 7.5 5.0-8.0 KRISTIN) UA PROTEIN DIPSTICK (test code NEGATIVE mg/dL Neg-15 = PROU) UA UROBILINIOGEN DIPSTICK 0.2 mg/dL 0.0-0.2 (test code = URO) UA NITRITE DIPSTICK (test code NEGATIVE NEGATIVE = CONNOR) UA LEUKOCYTE ESTERASE W REFLEX 2+ NEGATIVE A (test code = LEUUR) UA WBC (test code = WBCU) per HPF 0-5 UA RBC (test code = RBCU) per HPF 0-5 UA EPITHELIAL CELLS (test code per HPF Few = EPIU) UA BACTERIA (test code = BACU) per HPF NONE PROTHROMBIN [id number] 11:18:00 Test Item Value Reference Range Interpretation Comments PROTHROMBIN TIME 10.5 seconds 9.0-14.0 N PATIENT (test code = PTP) INTERNATIONAL NORMAL 0.9 0.8-1.2 N The the rapeutic range RATIO (test code = for oral INR) anticoagulant t herapy formost indicat ions is an internati onal normalized rati o (INR)of between 2.0 and 3.0. The recommended therapeutic INR range for various cli nical situations is l isted below: Clinical Situat ion INR range Pulmonary embol ism treatment (2.0-3.0)Venou s thrombosis treatmentVenous thrombosis prophylaxis (hi gh risk surgery)Prevent ion of systemic emboli sm from: A cute myocardial infa rction Valvula r heart disease Atrial fibrilla tion Mechanical pros thetic heart valves (2.5-3.5) THROMBOPLASTIN TIME [id number] 11:18:00 Test Item Value Reference Range Interpretation Comments THROMBOPLASTIN TIME PARTIAL 31.9 seconds 25.0-36.5 N (test code = PTT) CBC W/AUTO [id number] 11:01:00 Test Item Value Reference Range Interpretation Comments WHITE BLOOD CELL (test code = K/mm3 4.5-12.5 WBC) RED BLOOD CELL (test code = RBC) mill/mm3 3.7-5.2 HEMOGLOBIN (test code = HGB) 14.6 gram/dL 11.5-15.5 N HEMATOCRIT (test code = HCT) 44.8 % 36.0-46.0 N MEAN CELL VOLUME (test code = fL 80-98 MCV) MEAN CELL HGB (test code = MCH) picogram 27.0-33.0 MEAN CELL HGB CONCETRATION (test gram/dL 33.0-36.0 code = MCHC) RED CELL DISTRIBUTION WIDTH % 11.6-16.2 (test code = RDW) RED CELL DISTRIBUTION WIDTH SD fL 37.0-51.0 (test code = RDW-SD) PLATELET COUNT (test code = PLT) K/mm3 150-450 MEAN PLATELET VOLUME (test code fL 6.7-11.0 = MPV) NEUTROPHIL % (test code = NT%) % 39.0-69.0 IMMATURE GRANULOCYTE % (test % 0.0-5.0 code = IG%) LYMPHOCYTE % (test code = LY%) % 25.0-55.0 MONOCYTE % (test code = MO%) % 0.0-10.0 EOSINOPHIL % (test code = EO%) % 0.0-5.0 BASOPHIL % (test code = BA%) % 0.0-1.0 NEUTROPHIL # (test code = NT#) K/mm3 1.8-7.7 LYMPHOCYTE # (test code = LY#) K/mm3 1.0-5.0 MONOCYTE # (test code = MO#) K/mm3 0-0.8 EOSINOPHIL # (test code = EO#) K/mm3 0.0-0.5 BASOPHIL # (test code = BA#) K/mm3 0.0-0.2 CBC W/AUTO [id number] 11:01:00 Test Item Value Reference Range Interpretation Comments WHITE BLOOD CELL (test code = 10.1 K/mm3 4.5-12.5 N WBC) RED BLOOD CELL (test code = 4.93 mill/mm3 3.7-5.2 N RBC) HEMOGLOBIN (test code = HGB) 14.6 gram/dL 11.5-15.5 N HEMATOCRIT (test code = HCT) 44.8 % 36.0-46.0 N MEAN CELL VOLUME (test code = 90.9 fL 80-98 N MCV) MEAN CELL HGB (test code = MCH) 29.6 picogram 27.0-33.0 N MEAN CELL HGB CONCETRATION 32.6 gram/dL 33.0-36.0 L (test code = MCHC) RED CELL DISTRIBUTION WIDTH 13.2 % 11.6-16.2 N (test code = RDW) RED CELL DISTRIBUTION WIDTH SD 44.1 fL 37.0-51.0 N (test code = RDW-SD) PLATELET COUNT (test code = 287 K/mm3 150-450 N PLT) MEAN PLATELET VOLUME (test code 10.1 fL 6.7-11.0 N = MPV) NEUTROPHIL % (test code = NT%) 52.4 % 39.0-69.0 N IMMATURE GRANULOCYTE % (test 0.2 % 0.0-5.0 N code = IG%) LYMPHOCYTE % (test code = LY%) 36.3 % 25.0-55.0 N MONOCYTE % (test code = MO%) 8.2 % 0.0-10.0 N EOSINOPHIL % (test code = EO%) 2.1 % 0.0-5.0 N BASOPHIL % (test code = BA%) 0.8 % 0.0-1.0 N NUCLEATED RBC % (test code = 0.0 % 0-0 N NRBC%) NEUTROPHIL # (test code = NT#) 5.29 K/mm3 1.8-7.7 N IMMATURE GRANULOCYTE # (test 0.02 x10 3/uL 0-0.03 N code = IG#) LYMPHOCYTE # (test code = LY#) 3.66 K/mm3 1.0-5.0 N MONOCYTE # (test code = MO#) 0.83 K/mm3 0-0.8 H EOSINOPHIL # (test code = EO#) 0.21 K/mm3 0.0-0.5 N BASOPHIL # (test code = BA#) 0.08 K/mm3 0.0-0.2 N NUCLEATED RBC # (test code = 0.00 K/mm3 0.0-0.1 N NRBC#) COMPREHENSIVE METABOLIC [id number] 08:10:00 Test Item Value Reference Range Interpretation Comments SODIUM (test code = 141 mmol/L 136-145 N NA) POTASSIUM (test code = 3.7 mmol/L 3.5-5.1 N K) CHLORIDE (test code = 104.0 mmol/L 98-107 N CL) CARBON DIOXIDE (test 30.0 mmol/L 21-32 N code = CO2) ANION GAP (test code = 10.7 10-20 N GAP) GLUCOSE (test code = 115 mg/dL 74-106 H GLU) BLOOD UREA NITROGEN 12 mg/dL 7-18 N (test code = BUN) GLOMERULAR FILTRATION 56 mL/min >=60 Estima aminata GFR by RATE (test code = GFR) using Modified MDRD formula.Chronic kidney disease is defined as eith er kidney damageor GFR <60 mL/min/1.73 m2 for >3 months. CREATININE (test code 1.00 mg/dL 0.55-1.02 N Note change in = CREAT) reference range due to change in reagent. BUN/CREATININE RATIO 12.0 10-20 N (test code = BUN/CREA) TOTAL PROTEIN (test 7.6 gram/dL 6.4-8.2 N code = PROT) ALBUMIN (test code = 3.8 g/dL 3.4-5.0 N ALB) GLOBULIN (test code = 3.8 gram/dL 2.7-4.2 N GLOB) ALBUMIN/GLOBULIN RATIO 1.0 0.75-1.50 N (test code = A/G) CALCIUM (test code = 8.9 mg/dL 8.5-10.1 N CA) BILIRUBIN TOTAL (test 0.40 mg/dL 0.0-1.0 N code = BILT) SGOT/AST (test code = 22 IUnit/L 15-37 N AST) SGPT/ALT (test code = 34 IUnit/L 12-78 N ALT) ALKALINE PHOSPHATASE 105 IUnit/L 45-117 N Note change in TOTAL (test code = reference range due ALKP) to change in reagent. LIPID PROFILE (CORONARY RISK)2020-01-13 08:10:00 Test Item Value Reference Range Interpretation Comments TRIGLYCERIDES (test 259 mg/dL 20-150 H code = TRIG) CHOLESTEROL (test code 225 mg/dL 0-200 H = CHOL) CHOLESTEROL/HDL RATIO 4.0 RATIO 0-4.9 N RISK A SSOCIATED WITH (test code = CHOLHDL) CHOL/H DL RATIOS: Risk M tho Female1/[address] RAGE 3.43 3.27AVERAGE 4.97 4.4 [address]X AVERAGE 9[address] RAGE 23.39 11.04 REFERENCE VALUE IS RELATED TO RISK LEVELS ASRECOMMENDED B Y [place]. HEART, HERMINIA G, AND BLOOD INST. HDL CHOLESTEROL (test 48 mg/dL 40-60 N code = HDL) LIPOPROTEIN LDL (test 139 mg/dL 100-129 H RN PER REID, CONTACT code = LDL) PHYSICIAN IMMED IATELY IF THIS IS A ST RO[place], AMI OR CAROTID STENOSIS PATIEN T WHEN THE LDL >100 ([address] OCCURENCE, THIS ADMISSION)===== ======= ======= ======= ===Reference In terval: mg/dL mmol/L-------- ------- ------- ------- Optimal <100 <2.6Near/above optimal 100-12 9 2.6-3.3Borderl ine High 130-159 3.4-4.1High 160 -189 4.1-4.9Very High >=190 >=4.9========= This LDL result is a direct measurement.=== ====== HEPATIC FUNCTION [id number] 08:10:00 Test Item Value Reference Range Interpretation Comments BILIRUBIN DIRECT (test code = 0.10 mg/dL 0.0-0.20 N BILD) HCG SERUM [id number] 08:10:00 Test Item Value Reference Range Interpretation Comments HCG SERUM QUAL (test NEGATIVE NEGATIVE This HC GQL test is NOT code = HCGQL) applicable for MALE patients.Check with nurse about probable order error.If Tumor Marker Test needed, nu rse should order test "HCG TU"(Test #[id number])---- - VITAMIN [id number] 08:10:00 Test Item Value Reference Range Interpretation Comments VITAMIN B12 (test code = VITB12) 1083 pg/mL 193-986 H FOLIC [id number] 08:10:00 Test Item Value Reference Range Interpretation Comments FOLIC ACID (test code = FOL) 30.9 ng/mL 3.10-17.50 H THYROID PROFILE [id number] 08:10:00 Test Item Value Reference Range Interpretation Comments T3 UPTAKE (test code = 36.0 % 30.0-40.0 N T3UP) T4 (THYROXINE) (test 12.5 ug/dL 4.5-13.9 N code = T4) T7 (FREE THYROXINE 4.50 FTI 1.3-5.1 N INDEX) (test code = T7) THYROID STIMULATING 0.622 uIU/mL 0.36-3.74 N TSH REFE RENCE HORMONE (test code = RANGES: EUTHYROID: TSH) 0.35 - 4.3 mIU/mL HYPO : > 5.5 mIU/mL HYPER : < 0.35 mIU/mL VIT B1 WHOLE [id number] 08:10:00 Test Item Value Reference Range Interpretation Comments VIT B1 WHOLE BLOOD 175.1 nmol/L 66.5-200.0 Performed At: (test code = [facility] [id number]) [place], [place] [id number] danny Bull MD Ph:[phone] AB HIV 1 12:17:00 Test Item Value Reference Range Interpretation Comments AB HIV 1 2 Nonreactive NonReactive It is recognize d that (test code = currently avail able [id number]) assays for thed etection of antibodies t o HIV-1 and/or HIV-2 ma y notdetect all i nfected individuals. A negative test result velásquez snot exclude the pos sibility of exposure to or infection withH IV. HIV antibodies may be undetectable in some stages ofthe in fection and in some cli nical conditions. - XR CHEST 2 [id number] 09:22:00 FAX: Ana Lilia Burks MD [phone] [place]: B St: REG Name: VERA ALMODOVAR [facility] : 1960 Age/S: 59/F [address] [facility] Unit#: [id number] Loc: [place] [address] Phys: Ana Lilia Salazar MD Acct: [id number] Dis Date: Status: REG SDC PHONE #: [phone] Exam Date: 01/08/2020914 FAX #: [phone] Reason: pre-op EXAMS: CPT CODE: [id number] XR CHEST 2 V 24110 HISTORY: Preop. COMPARISON: None available. Location: [facility]. AP and lateral view of the chest: No acute infilt rates, effusion or congestion. Cardiac silhouette is normal. Gastric banding brace noted in the left upper quadrant. IMPRESSION: No acute infiltrates, effusion or congestion. at 0922 Reported and signed by: George Cardona M.D. CC: Ana Lilia Salazar MD Technologist: KRISTIAN ROCKWELL RT(R) Trnscrd Date/Time/By: 01/08/2020 (921) : By: [email or web address] Orig Print D/T: S: 01/08/2020 (6976) PAGE 1 Signed ReportURINALYSIS [id number] 09:05:00 Test Item Value Reference Range Interpretation Comments UA COLOR (test code = YELLOW YELLOW COLU) UA APPEARANCE (test code CLEAR CLEAR = APPU) UA GLUCOSE DIPSTICK NEGATIVE mg/dL NEGATIVE (test code = DGLUU) UA BILIRUBIN DIPSTICK NEGATIVE NEGATIVE (test code = BILU) UA KETONE DIPSTICK (test NEGATIVE mg/dL NEGATIVE code = KETU) UA SPECIFIC GRAVITY 1.010 1.001-1.035 (test code = SGU) UA BLOOD DIPSTICK (test NEGATIVE NEGATIVE code = JOHANA) UA PH DIPSTICK (test 7.0 5.0-8.0 code = KRISTIN) UA PROTEIN DIPSTICK NEGATIVE mg/dL Neg-15 (test code = PROU) UA UROBILINIOGEN 0.2 mg/dL 0.0-0.2 DIPSTICK (test code = URO) UA NITRITE DIPSTICK NEGATIVE NEGATIVE (test code = CONNOR) UA LEUKOCYTE ESTERASE W 1+ NEGATIVE A REFLEX (test code = LEUUR) UA WBC (test code = 5-10 per HPF 0-5 A WBCU) UA RBC (test code = RARE per HPF 0-5 RBCU) UA EPITHELIAL CELLS FEW TO MODERATE per Few (test code = EPIU) HPF UA BACTERIA (test code = FEW TO MODERATE per NONE BACU) HPF UA TRANSITIONAL CELLS FEW (1-5) per HPF Few (test code = TRANU) UA RENAL CELLS (test OCCASIONAL per HPF NONE code = LESLY) URINALYSIS [id number] 09:02:00 Test Item Value Reference Range Interpretation Comments UA COLOR (test code = COLU) YELLOW YELLOW UA APPEARANCE (test code = CLEAR CLEAR APPU) UA GLUCOSE DIPSTICK (test code NEGATIVE mg/dL NEGATIVE = DGLUU) UA BILIRUBIN DIPSTICK (test NEGATIVE NEGATIVE code = BILU) UA KETONE DIPSTICK (test code NEGATIVE mg/dL NEGATIVE = KETU) UA SPECIFIC GRAVITY (test code 1.010 1.001-1.035 = SGU) UA BLOOD DIPSTICK (test code = NEGATIVE NEGATIVE JOHANA) UA PH DIPSTICK (test code = 7.0 5.0-8.0 KRISTIN) UA PROTEIN DIPSTICK (test code NEGATIVE mg/dL Neg-15 = PROU) UA UROBILINIOGEN DIPSTICK 0.2 mg/dL 0.0-0.2 (test code = URO) UA NITRITE DIPSTICK (test code NEGATIVE NEGATIVE = CONNOR) UA LEUKOCYTE ESTERASE W REFLEX 1+ NEGATIVE A (test code = LEUUR) UA WBC (test code = WBCU) per HPF 0-5 UA RBC (test code = RBCU) per HPF 0-5 UA EPITHELIAL CELLS (test code per HPF Few = EPIU) UA BACTERIA (test code = BACU) per HPF NONE COMPREHENSIVE METABOLIC [id number] 08:58:00 Test Item Value Reference Range Interpretation Comments SODIUM (test code = 141 mmol/L 136-145 N NA) POTASSIUM (test code = 3.7 mmol/L 3.5-5.1 N K) CHLORIDE (test code = 104.0 mmol/L 98-107 N CL) CARBON DIOXIDE (test 30.0 mmol/L 21-32 N code = CO2) ANION GAP (test code = 10.7 10-20 N GAP) GLUCOSE (test code = 115 mg/dL 74-106 H GLU) BLOOD UREA NITROGEN 12 mg/dL 7-18 N (test code = BUN) GLOMERULAR FILTRATION 56 mL/min >=60 Estima aminata GFR by RATE (test code = GFR) using Modified MDRD formula.Chronic kidney disease is defined as eith er kidney damageor GFR <60 mL/min/1.73 m2 for >3 months. CREATININE (test code 1.00 mg/dL 0.55-1.02 N Note change in = CREAT) reference range due to change in reagent. BUN/CREATININE RATIO 12.0 10-20 N (test code = BUN/CREA) TOTAL PROTEIN (test 7.6 gram/dL 6.4-8.2 N code = PROT) ALBUMIN (test code = 3.8 g/dL 3.4-5.0 N ALB) GLOBULIN (test code = 3.8 gram/dL 2.7-4.2 N GLOB) ALBUMIN/GLOBULIN RATIO 1.0 0.75-1.50 N (test code = A/G) CALCIUM (test code = 8.9 mg/dL 8.5-10.1 N CA) BILIRUBIN TOTAL (test 0.40 mg/dL 0.0-1.0 N code = BILT) SGOT/AST (test code = 22 IUnit/L 15-37 N AST) SGPT/ALT (test code = 34 IUnit/L 12-78 N ALT) ALKALINE PHOSPHATASE 105 IUnit/L 45-117 N Note change in TOTAL (test code = reference range due ALKP) to change in reagent. LIPID PROFILE (CORONARY RISK)2020-01-08 08:58:00 Test Item Value Reference Range Interpretation Comments TRIGLYCERIDES (test 259 mg/dL 20-150 H code = TRIG) CHOLESTEROL (test code 225 mg/dL 0-200 H = CHOL) CHOLESTEROL/HDL RATIO 4.0 RATIO 0-4.9 N RISK A SSOCIATED WITH (test code = CHOLHDL) CHOL/H DL RATIOS: Risk M tho Female1/[address] A[address] RAGE 3.43 3.27AVERAGE 4.97 4.4 42X AVERAGE 9.[address] RAGE 23.39 11.04 REFERENCE VALUE IS RELATED TO RISK LEVELS ASRECOMMENDED B Y [place]. HEART, HERMINIA G, AND BLOOD INST. HDL CHOLESTEROL (test 48 mg/dL 40-60 N code = HDL) LIPOPROTEIN LDL (test 139 mg/dL 100-129 H RN PER REID, CONTACT code = LDL) PHYSICIAN IMMED IATELY IF THIS IS A [facility] [place], AMI OR CAROTID STENOSIS PATIEN T WHEN THE LDL >100 ([address] OCCURENCE, THIS ADMISSION)===== ======= ======= ======= ===Reference In terval: mg/dL mmol/L-------- ------- ------- ------- Optimal <100 <2.6Near/above optimal 100-12 9 2.6-3.3Borderl ine High 130-159 3.4-4.1High 160 -189 4.1-4.9Very High >=190 >=4.9========= This LDL result is a direct measurement.=== ====== HEPATIC FUNCTION [id number] 08:58:00 Test Item Value Reference Range Interpretation Comments BILIRUBIN DIRECT (test code = 0.10 mg/dL 0.0-0.20 N BILD) HCG SERUM [id number] 08:58:00 Test Item Value Reference Range Interpretation Comments HCG SERUM QUAL (test NEGATIVE NEGATIVE This HC GQL test is NOT code = HCGQL) applicable for MALE patients.Check with nurse about probable order error.If Tumor Marker Test needed, nu rse should order test "HCG TU"(Test #550.37383)---- - VITAMIN [id number] 08:58:00 Test Item Value Reference Range Interpretation Comments VITAMIN B12 (test code = VITB12) 1083 pg/mL 193-986 H FOLIC [id number] 08:58:00 Test Item Value Reference Range Interpretation Comments FOLIC ACID (test code = FOL) 30.9 ng/mL 3.10-17.50 H THYROID PROFILE [id number] 08:58:00 Test Item Value Reference Range Interpretation Comments T3 UPTAKE (test code = 36.0 % 30.0-40.0 N T3UP) T4 (THYROXINE) (test 12.5 ug/dL 4.5-13.9 N code = T4) T7 (FREE THYROXINE 4.50 FTI 1.3-5.1 N INDEX) (test code = T7) THYROID STIMULATING 0.622 uIU/mL 0.36-3.74 N TSH REFE RENCE HORMONE (test code = RANGES: EUTHYROID: TSH) 0.35 - 4.3 mIU/mL HYPO : > 5.5 mIU/mL HYPER : < 0.35 mIU/mL VIT B1 WHOLE [id number] 08:58:00 Test Item Value Reference Range Interpretation Comments VIT B1 WHOLE BLOOD (test code = nmol/L 87-280 [id number]) AB HELICOBACTER [id number] 08:57:00 Test Item Value Reference Range Interpretation Comments AB HELICOBACTER IGG (test code = NEGATIVE NEGATIVE HELIGAB) [id number] 08:41:00 Test Item Value Reference Range Interpretation Comments GLYCOSYLATED HEMOGLOBIN 6.3 % HbA1 IZABEL JIMENES DIAGNOSIS: (HA1C) (test code = HbA1C GLYHGB) (%) ----- ----- Diab etic >6.4Prediabetes 5.7 - 6.4Normal <5.7 ESTIMATED AVERAGE 134 MG/DL GLUCOSE (test code = EAG) PROTHROMBIN [id number] 08:25:00 Test Item Value Reference Range Interpretation Comments PROTHROMBIN TIME 10.4 seconds 9.0-14.0 N PATIENT (test code = PTP) INTERNATIONAL NORMAL 0.9 0.8-1.2 N The the rapeutic range RATIO (test code = for oral INR) anticoagulant t herapy formost indicat ions is an internati onal normalized rati o (INR)of between 2.0 and 3.0. The recommended therapeutic INR range for various cli nical situations is l isted below: Clinical Situat ion INR range Pulmonary embol ism treatment (2.0-3.0)Venou s thrombosis treatmentVenous thrombosis prophylaxis (hi gh risk surgery)Prevent ion of systemic emboli sm from: A cute myocardial infa rction Valvula r heart disease Atrial fibrilla tion Mechanical pros thetic heart valves (2.5-3.5) THROMBOPLASTIN TIME [id number] 08:25:00 Test Item Value Reference Range Interpretation Comments THROMBOPLASTIN TIME PARTIAL 36.3 seconds 25.0-36.5 N (test code = PTT) COMPREHENSIVE METABOLIC [id number] 08:16:00 Test Item Value Reference Range Interpretation Comments SODIUM (test code = NA) 141 mmol/L 136-145 N POTASSIUM (test code = K) 3.7 mmol/L 3.5-5.1 N CHLORIDE (test code = CL) 104.0 mmol/L 98-107 N CARBON DIOXIDE (test code = CO2) mmol/L 21-32 ANION GAP (test code = GAP) 10-20 GLUCOSE (test code = GLU) mg/dL 74-106 BLOOD UREA NITROGEN (test code = mg/dL 7-18 BUN) GLOMERULAR FILTRATION RATE (test mL/min >=60 code = GFR) CREATININE (test code = CREAT) mg/dL 0.55-1.02 BUN/CREATININE RATIO (test code 10-20 = BUN/CREA) TOTAL PROTEIN (test code = PROT) gram/dL 6.4-8.2 ALBUMIN (test code = ALB) g/dL 3.4-5.0 GLOBULIN (test code = GLOB) gram/dL 2.7-4.2 ALBUMIN/GLOBULIN RATIO (test 0.75-1.50 code = A/G) CALCIUM (test code = CA) mg/dL 8.5-10.1 BILIRUBIN TOTAL (test code = mg/dL 0.0-1.0 BILT) SGOT/AST (test code = AST) IUnit/L 15-37 SGPT/ALT (test code = ALT) IUnit/L 12-78 ALKALINE PHOSPHATASE TOTAL (test IUnit/L 45-117 code = ALKP) LIPID PROFILE (CORONARY RISK)2020-01-08 08:16:00 Test Item Value Reference Range Interpretation Comments TRIGLYCERIDES (test code = TRIG) mg/dL 20-150 CHOLESTEROL (test code = CHOL) mg/dL 0-200 CHOLESTEROL/HDL RATIO (test code = RATIO 0-4.9 CHOLHDL) HDL CHOLESTEROL (test code = HDL) mg/dL 40-60 LIPOPROTEIN LDL (test code = LDL) mg/dL 100-129 HEPATIC FUNCTION [id number] 08:16:00 Test Item Value Reference Range Interpretation Comments BILIRUBIN DIRECT (test code = BILD) mg/dL 0.0-0.20 HCG SERUM [id number] 08:16:00 Test Item Value Reference Range Interpretation Comments HCG SERUM QUAL (test NEGATIVE NEGATIVE This HC GQL test is NOT code = HCGQL) applicable for MALE patients.Check with nurse about probable order error.If Tumor Marker Test needed, nu rse should order test "HCG TU"(Test #550.59720)---- - VITAMIN [id number] 08:16:00 Test Item Value Reference Range Interpretation Comments VITAMIN B12 (test code = VITB12) pg/mL 193-986 FOLIC [id number] 08:16:00 Test Item Value Reference Range Interpretation Comments FOLIC ACID (test code = FOL) ng/mL 3.10-17.50 THYROID PROFILE [id number] 08:16:00 Test Item Value Reference Range Interpretation Comments T3 UPTAKE (test code = T3UP) % 30.0-40.0 T4 (THYROXINE) (test code = T4) ug/dL 4.5-13.9 T7 (FREE THYROXINE INDEX) (test code FTI 1.3-5.1 = T7) THYROID STIMULATING HORMONE (test uIU/mL 0.36-3.74 code = TSH) VIT B1 WHOLE [id number] 08:16:00 Test Item Value Reference Range Interpretation Comments VIT B1 WHOLE BLOOD (test code = nmol/L 87-280 [id number]) CBC W/AUTO [id number] 08:13:00 Test Item Value Reference Range Interpretation Comments WHITE BLOOD CELL (test code = 12.3 K/mm3 4.5-12.5 N WBC) RED BLOOD CELL (test code = 5.05 mill/mm3 3.7-5.2 N RBC) HEMOGLOBIN (test code = HGB) 15.1 gram/dL 11.5-15.5 N HEMATOCRIT (test code = HCT) 45.6 % 36.0-46.0 N MEAN CELL VOLUME (test code = 90.3 fL 80-98 N MCV) MEAN CELL HGB (test code = MCH) 29.9 picogram 27.0-33.0 N MEAN CELL HGB CONCETRATION 33.1 gram/dL 33.0-36.0 N (test code = MCHC) RED CELL DISTRIBUTION WIDTH 13.1 % 11.6-16.2 N (test code = RDW) RED CELL DISTRIBUTION WIDTH SD 43.1 fL 37.0-51.0 N (test code = RDW-SD) PLATELET COUNT (test code = 320 K/mm3 150-450 N PLT) MEAN PLATELET VOLUME (test code 9.9 fL 6.7-11.0 N = MPV) NEUTROPHIL % (test code = NT%) 58.4 % 39.0-69.0 N IMMATURE GRANULOCYTE % (test 0.4 % 0.0-5.0 N code = IG%) LYMPHOCYTE % (test code = LY%) 32.1 % 25.0-55.0 N MONOCYTE % (test code = MO%) 6.8 % 0.0-10.0 N EOSINOPHIL % (test code = EO%) 1.6 % 0.0-5.0 N BASOPHIL % (test code = BA%) 0.7 % 0.0-1.0 N NUCLEATED RBC % (test code = 0.0 % 0-0 N NRBC%) NEUTROPHIL # (test code = NT#) 7.18 K/mm3 1.8-7.7 N IMMATURE GRANULOCYTE # (test 0.05 x10 3/uL 0-0.03 H code = IG#) LYMPHOCYTE # (test code = LY#) 3.95 K/mm3 1.0-5.0 N MONOCYTE # (test code = MO#) 0.83 K/mm3 0-0.8 H EOSINOPHIL # (test code = EO#) 0.20 K/mm3 0.0-0.5 N BASOPHIL # (test code = BA#) 0.08 K/mm3 0.0-0.2 N NUCLEATED RBC # (test code = 0.00 K/mm3 0.0-0.1 N NRBC#) MANUAL DIFF REQUIRED (test code NO = MDIFF) COMPREHENSIVE METABOLIC [id number] 08:13:00 Test Item Value Reference Range Interpretation Comments SODIUM (test code = NA) mmol/L 136-145 POTASSIUM (test code = K) mmol/L 3.5-5.1 CHLORIDE (test code = CL) mmol/L 98-107 CARBON DIOXIDE (test code = CO2) mmol/L 21-32 ANION GAP (test code = GAP) 10-20 GLUCOSE (test code = GLU) mg/dL 74-106 BLOOD UREA NITROGEN (test code = mg/dL 7-18 BUN) GLOMERULAR FILTRATION RATE (test mL/min >=60 code = GFR) CREATININE (test code = CREAT) mg/dL 0.55-1.02 BUN/CREATININE RATIO (test code = 10-20 BUN/CREA) TOTAL PROTEIN (test code = PROT) gram/dL 6.4-8.2 ALBUMIN (test code = ALB) g/dL 3.4-5.0 GLOBULIN (test code = GLOB) gram/dL 2.7-4.2 ALBUMIN/GLOBULIN RATIO (test code = 0.75-1.50 A/G) CALCIUM (test code = CA) mg/dL 8.5-10.1 BILIRUBIN TOTAL (test code = BILT) mg/dL 0.0-1.0 SGOT/AST (test code = AST) IUnit/L 15-37 SGPT/ALT (test code = ALT) IUnit/L 12-78 ALKALINE PHOSPHATASE TOTAL (test IUnit/L 45-117 code = ALKP) LIPID PROFILE (CORONARY RISK)2020-01-08 08:13:00 Test Item Value Reference Range Interpretation Comments TRIGLYCERIDES (test code = TRIG) mg/dL 20-150 CHOLESTEROL (test code = CHOL) mg/dL 0-200 CHOLESTEROL/HDL RATIO (test code = RATIO 0-4.9 CHOLHDL) HDL CHOLESTEROL (test code = HDL) mg/dL 40-60 LIPOPROTEIN LDL (test code = LDL) mg/dL 100-129 HEPATIC FUNCTION [id number] 08:13:00 Test Item Value Reference Range Interpretation Comments BILIRUBIN DIRECT (test code = BILD) mg/dL 0.0-0.20 HCG SERUM [id number] 08:13:00 Test Item Value Reference Range Interpretation Comments HCG SERUM QUAL (test NEGATIVE NEGATIVE This HC GQL test is NOT code = HCGQL) applicable for MALE patients.Check with nurse about probable order error.If Tumor Marker Test needed, nu rse should order test "HCG TU"(Test #550.62865)---- - VITAMIN [id number] 08:13:00 Test Item Value Reference Range Interpretation Comments VITAMIN B12 (test code = VITB12) pg/mL 193-986 FOLIC [id number] 08:13:00 Test Item Value Reference Range Interpretation Comments FOLIC ACID (test code = FOL) ng/mL 3.10-17.50 THYROID PROFILE [id number] 08:13:00 Test Item Value Reference Range Interpretation Comments T3 UPTAKE (test code = T3UP) % 30.0-40.0 T4 (THYROXINE) (test code = T4) ug/dL 4.5-13.9 T7 (FREE THYROXINE INDEX) (test code FTI 1.3-5.1 = T7) THYROID STIMULATING HORMONE (test uIU/mL 0.36-3.74 code = TSH) VIT B1 WHOLE [id number] 08:13:00 Test Item Value Reference Range Interpretation Comments VIT B1 WHOLE BLOOD (test code = nmol/L 87-280 [id number])
[2020-11-22 20:21] LABS: Absolute Lymphocytes (CBC) 3.1 K/uL (0.7-4.9); Basophils % 0.3 % (0-1.3); Hematocrit 46.1 % (36.0-45.0); Lymphocytes % 19.2 % (15.3-44.8); MPV 8.9 fL (7.6-11.3); RBC Red Blood Cell Count 5.15 M/uL (3.86-4.86)
[2020-11-22 20:24] LABS: Protime INR 1.11
[2020-11-22 20:34] LABS: ALT/SGPT 17 U/L (12-78); AST/SGOT 14 U/L (15-37); Alkaline Phosphatase 108 U/L (45-117); BUN Blood Urea Nitrogen 15 mg/dL (7-18); Bicarbonate 28 mmol/L (21-32); Bilirubin Direct 0.1 mg/dL (0-0.2); Bilirubin Total 0.6 mg/dL (0.2-1.0); Glucose Level 109 mg/dL (74-106); Magnesium 2.7 mg/dL (1.8-2.4); NT PRO-BNP 126 pg/mL (<125); Potassium 3.8 mmol/L (3.5-5.1); Protein, Total 8.3 g/dL (6.4-8.2); Sodium Level 143 mmol/L (136-145); Thyroid Stimulating Hormone 0.144 uIU/mL (0.360-3.740); Troponin (Emerg Dept Use Only) < 0.02 ng/mL (0.0-0.045)
[2020-11-22] MEDS ORDERED: ASPIRIN 81 MG CHEWABLE TABLET ONE (20:34)
--- NOTE | 2020-11-22 20:35 | RAD REPORT ---
EXAM DESCRIPTION: RAD - Shoulder Right 2 View - 11/22/2020 8:26 pm CLINICAL HISTORY: Right shoulder pain FINDINGS: No fracture or dislocation is seen. Calcific densities which lie lateral to the humeral he ad may indicate calcific tendinitis Mild osteoarthritis AC joint
[2020-11-22] MEDS ORDERED: NA CHLORIDE 0.9% 1,000 ML ONE (20:36)
[2020-11-22] MEDS ORDERED: FOLIC ACID 5 MG/ML VIAL ONE (20:36)
--- NOTE | 2020-11-22 20:37 | RAD REPORT ---
EXAM DESCRIPTION: Ivana Single View11/22/2020 8:24 pm CLINICAL HISTORY: cough COMPARISON: none FINDINGS: The lungs appear clear of acute infiltrate. The heart is normal size IMPRESSION: No acute abnormalities displayed
[2020-11-22] MEDS ORDERED: MORPHINE 2 MG/ML SYR ONE (20:50)
[2020-11-22] MEDS ORDERED: ONDANSETRON 4 MG/2 ML VIAL ONE (20:51)
--- NOTE | 2020-11-22 21:09 | RAD REPORT ---
EXAM DESCRIPTION: USCarotid Artery Bilateral11/22/2020 8:43 pm CLINICAL HISTORY: syncope COMPARISON: None FINDINGS: The velocity of the right internal carotid artery equals 88 cm/sec. The right ICA/CCA rati o 1.2 The velocity of the left internal carotid artery equals 68 cm/sec. The left ICA/CCA ratio .8 Plaque is not visualized within the carotid arteries The vertebral arteries demonstrate antegrade flow IMPRESSION: Unremarkable exam NASCET criteria used. Mild 0-49% stenosis Moderate 50-69% stenosis Severe 70-99% stenosis
--- NOTE | 2020-11-22 21:19 | RAD REPORT ---
EXAM DESCRIPTION: CT - Head C Spine Mpr Wo Con - 11/22/2020 9:01 pm CLINICAL HISTORY: Numbness COMPARISON: None. TECHNIQUE: Computed axial tomography of the head and cervical spine was obtained. Sagittal and coronal reconstruction was performed. All CT scans are performed using dose optimization technique as appropriate and may include automated exposure control or mA/KV adjustment according to patient size. FINDINGS: An intracranial bleed is not seen. The ventricles are normal in caliber. An extra-axial fl uid collection is not noted.Fluid within the visualized sinuses and mastoids is not seen A cervical fracture is not visualized. No dislocation is noted. Slight anterior subluxation C3 on C4 Small left paracentral disc herniation C3-4. Large disc osteophyte complex C4-5 compresses the spinal cord. Thecal sac measures 6 millimeters. Mar ked narrowing of the right neural foramina Large disc osteophyte complex C5-6 compresses the spinal cord. The thecal sac measures 7 millimeters. Marked narrowing of the right neural foramina. Moderate left paracentral disc osteophyte complex C6-7 IMPRESSION: No acute intracranial abnormality is seen. Small left paracentral disc herniation C3-4. Large disc osteophyte complex C4-5 compresses the spinal cord. Thecal sac measures 6 millimeters. Mar ked narrowing of the right neural foramina Large disc osteophyte complex C5-6 compresses the spinal cord. The thecal sac measures 7 millimeters. Marked narrowing of the right neural foramina. Moderate left paracentral disc osteophyte complex C6-7 MRI may be helpful for further evaluation
--- NOTE | 2020-11-22 21:35 | RAD REPORT ---
EXAM DESCRIPTION: CT - Angio Aorta For Dissection - 11/22/2020 9:01 pm CLINICAL HISTORY: . Chest and abd pain COMPARISON: 2017 TECHNIQUE: Computed tomography angiography of the chest, abdomen pelvis were obtained. 100 cc Isovue 370 was administered intravenously. Coronal and sagittal reconstruction were performed. MIP 3D reconstruction was performed All CT scans are performed using dose optimization technique as appropriate and may include automated exposure control or mA/KV adjustment according to patient size. FINDINGS: An aortic dissection is not seen. An aortic aneurysm is not displayed. The celiac, SMA and HOA are patent . A lung consolidation is not present. A pericardial effusion is not seen. A pleural effusion is not n oted. The liver,spleen, pancreas adrenals and kidneys do not demonstrate an acute abnormality No evidence diverticulitis. Small nonobstructing renal calculi. Spondylosis involves lumbar spine res ulting in spinal stenosis IMPRESSION: Negative for an aortic dissection.
--- NOTE | 2020-11-22 21:55 | EDPHYS ---
Physician Documentation [facility] Name: Bambi Raymundo Age: 60 yrs Sex: Female : 1960 Arrival Date: 11/22/2020 Time: 18:27 Bed 26 Private MD: DERICK Physician Gerard Martinez HPI: 11/22 19:43 This 60 yrs old Female presents to ER via Wheelchair with complaints of lucio Allergic Reaction, Shoulder Pain - numbness. 19:43 The patient presents with right arm pain, weakness because of pain. Onset: The lucio symptoms/episode began/occurred 1 day(s) ago. Associated signs and symptoms: Pertinent positives:. Possible causes: The patient has no known obvious cause for the symptoms. At home the patient or guardian has treated the symptoms with nothing. Severity of symptoms: At their worst the symptoms were mild moderate in the emergency department the symptoms are unchanged. The patient has not experienced similar symptoms in the past. Historical: - Allergies: 19:05 No Known Allergies; sg - PMHx: 19:05 Hypothyroidism; sg - PSHx: 19:05 ; sg - Immunization history:: Adult Immunizations up to date. - Social history:: Smoking status: Patient denies any tobacco usage or history of. - Family history:: not pertinent. ROS: 19:43 Constitutional: Negative for fever, chills, and weight loss, Eyes: Negative for injury, lucio pain, redness, and discharge, ENT: Negative for injury, pain, and discharge, Neck: Negative for injury, pain, and swelling, Cardiovascular: Negative for chest pain, palpitations, and edema, Respiratory: Negative for shortness of breath, cough, wheezing, and pleuritic chest pain, Abdomen/GI: Negative for abdominal pain, nausea, vomiting, diarrhea, and constipation, Back: Negative for injury and pain, : Negative for injury, bleeding, discharge, and swelling, Skin: Negative for injury, rash, and discoloration, Psych: Negative for depression, anxiety, suicide ideation, homicidal ideation, and hallucinations, Allergy/Immunology: Negative for hives, rash, and allergies, Endocrine: Negative for neck swelling, polydipsia, polyuria, polyphagia, and marked weight changes, Hematologic/Lymphatic: Negative for swollen nodes, abnormal bleeding, and unusual bruising. 19:43 MS/extremity: Positive for decreased range of motion, pain, tenderness, of the anterior aspect of right shoulder and posterior aspect of right shoulder. Exam: 19:43 Constitutional: This is a well developed, well nourished patient who is awake, alert, lucio and in no acute distress. Head/Face: Normocephalic, atraumatic. Eyes: Pupils equal round and reactive to light, extra-ocular motions intact. Lids and lashes normal. Conjunctiva and sclera are non-icteric and not injected. Cornea within normal limits. Periorbital areas with no swelling, redness, or edema. ENT: Nares patent. No nasal discharge, no septal abnormalities noted. Tympanic membranes are normal and external auditory canals are clear. Oropharynx with no redness, swelling, or masses, exudates, or evidence of obstruction, uvula midline. Mucous membranes moist. Neck: Trachea midline, no thyromegaly or masses palpated, and no cervical lymphadenopathy. Supple, full range of motion without nuchal rigidity, or vertebral point tenderness. No Meningismus. Chest/axilla: Normal chest wall appearance and motion. Nontender with no deformity. No lesions are appreciated. Cardiovascular: Regular rate and rhythm with a normal S1 and S2. No gallops, murmurs, or rubs. Normal PMI, no JVD. No pulse deficits. Respiratory: Lungs have equal breath sounds bilaterally, clear to auscultation and percussion. No rales, rhonchi or wheezes noted. No increased work of breathing, no retractions or nasal flaring. Abdomen/GI: Soft, non-tender, with normal bowel sounds. No distension or tympany. No guarding or rebound. No evidence of tenderness throughout. Back: No spinal tenderness. No costovertebral tenderness. Full range of motion. Female : Normal external genitalia. Skin: Warm, dry with normal turgor. Normal color with no rashes, no lesions, and no evidence of cellulitis. Neuro: Awake and alert, GCS 15, oriented to person, place, time, and situation. Cranial nerves II-XII grossly intact. Motor strength 5/5 in all extremities. Sensory grossly intact. Cerebellar exam normal. Normal gait. Psych: Awake, alert, with orientation to person, place and time. Behavior, mood, and affect are within normal limits. 19:43 Musculoskeletal/extremity: Extremities: grossly normal except: noted in the anterior aspect of right shoulder, right bicep, posterior aspect of right shoulder and right tricep: decreased ROM, pain, ROM: limited active range of motion, limited passive range of motion, in the right arm, limited active range of motion due to pain, limited passive range of motion due to pain, Circulation is intact in all extremities. Sensation intact. Compartment Syndrome exam of affected extremity: is normal. DVT Exam: no swelling, negative Homans' sign noted on exam, no appreciated bluish discoloration, no erythema, no increased warmth, pain, tenderness. 19:55 ECG was reviewed by the Attending Physician. lucio Vital Signs: 19:01 BP 142 / 80; Pulse 76; Resp 16; Temp 97.9; Pulse Ox 100% on R/A; Pain 6/10; sg 19:57 Weight 75.75 kg; rr5 21:20 BP 149 / 89; Pulse 73; Resp 15; Pulse Ox 98% ; Pain 8/10; rr5 22:00 BP 139 / 70; Pulse 79; Resp 16; Pulse Ox 97% ; rr5 23:00 BP 141 / 75; Pulse 70; Resp 19; Pulse Ox 99% ; rr5 01/13 00:20 BP 133 / 75; Pulse 63; Resp 17; Pulse Ox 95% ; rr5 01:30 BP 118 / 79; Pulse 61; Resp 16; Pulse Ox 95% ; rr5 02:30 BP 125 / 68; Pulse 63; Resp 17; Pulse Ox 97% ; rr5 03:26 BP 110 / 62; Pulse 57; Resp 16; Pulse Ox 95% ; rr5 NIH Stroke Scale Scores: 11/22 19:43 NIHSS Score: 1 lucio MDM: 19:13 Patient medically screened. lucio 19:49 Differential diagnosis: Arrhythmias. Data reviewed: vital signs, nurses notes, lab test lucio result(s), EKG, radiologic studies, CT scan, doppler, plain films. Data interpreted: surveillance monitor: rate is 76 beats/min, rhythm is regular, Pulse oximetry: on room air is 100 %. Test interpretation: by ED physician or midlevel provider: ECG, plain radiologic studies. Counseling: I had a detailed discussion with the patient and/or guardian regarding: the historical points, exam findings, and any diagnostic results supporting the discharge/admit diagnosis, lab results, radiology results. ED course: gerard page to follow up , admit to dr barillas, consult kathy and sae. 19:54 ED course: NOT A TPA CANDIDATE, BEGAN YESTERDAY. [facility] 11/22 19:43 Order name: Basic Metabolic Panel; Complete Time: 20:39 [facility] 11/22 20:39 Interpretation: Normal except: GLUC 109; GFR 56. cp 11/22 19:43 Order name: CBC with Diff; Complete Time: 21:48 [facility] 11/22 20:40 Interpretation: Normal except: WBC 16.3; RBC 5.15; HGB 15.1; HCT 46.1; TARIK% 74.9; NEUT cp A 12.3. 11/22 19:43 Order name: LFT's; Complete Time: 20:39 [facility] 11/22 19:43 Order name: Magnesium; Complete Time: 20:39 [facility] 11/22 19:43 Order name: NT PRO-BNP; Complete Time: 20:39 [facility] 11/22 19:43 Order name: PT-INR; Complete Time: 20:39 [facility] 11/22 19:43 Order name: Troponin (emerg Dept Use Only); Complete Time: 20:39 [facility] 11/22 19:43 Order name: Sed Rate; Complete Time: 21:48 [facility] 11/22 19:43 Order name: Urine Culture [facility] 11/22 20:12 Order name: Thyroid Stimulating Hormone; Complete Time: 20:39 [facility] 11/22 20:39 Interpretation: Abnormal: TSH 0.144. cp 11/22 21:52 Order name: Urine Dipstick--Ancillary (enter results) [facility] 11/22 21:53 Order name: Urine Dipstick-Ancillary [facility] 11/22 22:08 Order name: CBC with Automated Diff EDGA 11/22 22:08 Order name: CBC with Automated Diff EDMS 11/22 22:08 Order name: CKMB Creatine Kinase MB EDGA 11/22 22:08 Order name: CKMB Creatine Kinase MB EDGA 11/22 22:08 Order name: CKMB Creatine Kinase MB EDGA 11/22 22:08 Order name: CKMB Creatine Kinase MB EDGA 11/22 22:08 Order name: Comprehensive Metabolic Panel EDGA 11/22 22:08 Order name: Comprehensive Metabolic Panel EDMS 11/22 22:08 Order name: Lipid Profile [facility] 11/22 22:08 Order name: Lipid Profile [facility]GA 11/22 22:08 Order name: Troponin I [facility] 11/22 22:08 Order name: Troponin I [facility] 11/22 22:08 Order name: Troponin I [facility] 11/22 22:19 Order name: T4 Free [facility] 11/22 22:19 Order name: T4,Total [facility] 11/22 22:26 Order name: SARS-COV-2 RT PCR [facility] 11/22 19:43 Order name: XRAY Chest (1 view); Complete Time: 20:39 [facility] 11/22 19:43 Order name: EKG; Complete Time: 19:45 [facility] 11/22 19:43 Order name: Cardiac monitoring; Complete Time: 19:57 [facility] 11/22 19:43 Order name: EKG - Nurse/Tech; Complete Time: 19:57 [facility] 11/22 19:43 Order name: IV Saline Lock; Complete Time: 19:57 [facility] 11/22 19:43 Order name: Labs collected and sent; Complete Time: 19:57 [facility] 11/22 19:43 Order name: O2 Per Protocol; Complete Time: 19:57 [facility] 11/22 19:43 Order name: O2 Sat Monitoring; Complete Time: 19:57 [facility] 11/22 19:43 Order name: US Carotid Artery Bilateral; Complete Time: 21:48 [facility] 11/22 19:43 Order name: CT Head C Spine; Complete Time: 21:48 [facility] 11/22 19:43 Order name: Urine Dipstick-Ancillary (obtain specimen); Complete Time: 22:00 [facility] 11/22 19:43 Order name: CT Aorta for Dissection; Complete Time: 21:48 [facility] 11/22 19:43 Order name: Shoulder Right (2 View) XRAY; Complete Time: 20:39 [facility] 11/22 22:08 Order name: CONS Pharmacy Consult [facility] 11/22 22:08 Order name: Heart Healthy [facility] 11/23 07:33 Order name: Arm-Sling; Complete Time: 07:33 rr5 EC:55 Rate is 80 beats/min. Rhythm is regular. QRS [place] is Normal. [place] interval is normal. QRS lucio interval is normal. QT interval is normal. No Q waves. T waves are Normal. No ST changes noted. Clinical impression: NSR w/ Non-specific ST/T Changes and No evidence of ischemia. Interpreted by me. Reviewed by me. Administered Medications: 20:15 Drug: NS 0.9% 1000 ml Route: IV; Rate: 1 bolus; Site: left antecubital; rr5 23:10 Follow up: Response: No adverse reaction; IV Status: Completed infusion; IV Intake: rr5 1000ml 20:30 Drug: Zofran (Ondansetron) 4 mg Route: IVP; Site: left antecubital; rr5 21:30 Follow up: Response: No adverse reaction rr5 20:32 Drug: morphine 2 mg {Note: rass 0.} Route: IVP; Site: left antecubital; rr5 21:35 Follow up: Response: No adverse reaction; Pain is decreased; RASS: Alert and Calm (0) rr5 20:40 Drug: foLIC Acid 1 mg Route: IVPB; Site: left antecubital; rr5 21:40 Follow up: Response: No adverse reaction; IV Status: Completed infusion rr5 22:00 Drug: Aspirin Chewable Tablet 324 mg Route: PO; rr5 23:10 Follow up: Response: No adverse reaction rr5 11/23 04:00 Drug: morphine 2 mg {Note: rass 0.} Route: IVP; Site: right forearm; rr5 05:14 Follow up: Response: No adverse reaction; Pain is decreased; RASS: Alert and Calm (0) rr5 Disposition: 11/22/20 21:54 Hospitalization ordered by Mari Barnes for Observation. Preliminary diagnosis are Pain in right shoulder, Chest pain, unspecified. - Bed requested for [facility] ER HOLD. - Status is Observation. aa5 - Condition is Stable. - Problem is new. - Symptoms have improved. NIH Stroke Scale - NIH Stroke Score Date: 11/22/2020 Time: 19:43 Total Score = 1 1a. Level of Consciousness (LOC) - 0(Alert) 1b. Level of Consciousness (LOC) (Year \T\ Age) - 0(Both) 1c. LOC Commands (Open \T\ Closes Eyes/Regulatory Scientist) - 0(Both) 2. Best Gaze (Lateral Gaze Paresis) - 0(Normal) 3. Visual Field Loss - 0(No visual loss) 4. Facial Palsy - 0(Normal) 5a. Left Arm: Motor (10-second hold) - 0(No drift) 5b. Right Arm: Motor (10-second hold) - 0(No drift) 6a. Left Leg: Motor (5-second hold - always test supine) - 0(No drift) 6b. Right Leg: Motor (5-second hold - always test supine) - 0(No drift) 7. Limb Ataxia (finger/nose \T\ heel/lopez - test with eyes open) - 1(Present in one limb) 8. Sensory Loss (pinprick arms/legs/face) - 0(Normal) 9. Best Language: Aphasia (description/naming/reading) - 0(No aphasia) 10. Dysarthria (speech clarity - read or repeat words) - 0(Normal) 11. Extinction and Inattention (visual/tactile/auditory/spatial/personal) - 0(No abnormality) Initials: lucio Signatures: Dispatcher [employer] EDMS Jorge Barrera, RN RN sg Gerard Martinez MD MD cha Calderon, Audri RN RN aa5 Dalia Soliman RN RN tl1 Gerard Rush PA PA cp Roque, Raymond RN RN rr5 Corrections: (The following items were deleted from the chart) 11/22 20:11 19:54 THYROID STIMULAT HORMONE+C.LAB.BRZ ordered. EDMS EDMS 21:34 19:57 CORONAVIRUS+MR.LAB.BRZ ordered. EDGA EDMS 22:09 21:54 Hospitalization Ordered by Mari Barnes MD for Observation. Preliminary tl1 diagnosis is Pain in right shoulder; Chest pain, unspecified. Bed requested for Telemetry/MedSurg (observation). Status is Observation. Condition is Stable. Problem is new. Symptoms have improved. cp 11/23 12:10 11/22 22:09 11/22/2020 21:54 Hospitalization Ordered by Mari Barnes MD for aa5 Observation. Preliminary diagnosis is Pain in right shoulder; Chest pain, unspecified. Bed requested for [facility] ER HOLD. Status is Observation. Condition is Stable. Problem is new. Symptoms have improved. tl1
--- NOTE | 2020-11-22 21:55 | ER ---
Nurse's Notes [facility] Name: Bambi Raymundo Age: 60 yrs Sex: Female : 1960 Arrival Date: 11/22/2020 Time: 18:27 Bed 26 Private MD: Diagnosis: Pain in right shoulder;Chest pain, unspecified Presentation: 11/22 19:01 Chief complaint: Patient states: Left sided neck pain, described as sharp, states sg having weakness and numbness in the left are that began around 1730 yesterday, states the only changes was taking the levofloxacin prescribed by PCP for a kidney stone/kidney infection, no other symptoms reported for triage. Coronavirus screen: Client denies travel out of the [place] in the last 14 days. At this time, the client does not indicate any symptoms associated with coronavirus-19. Ebola Screen: Patient negative for fever greater than or equal to 101.5 degrees Fahrenheit, and additional compatible Ebola Virus Disease symptoms Patient denies exposure to infectious person. Patient denies travel to an Ebola-affected area in the 21 days before illness onset. No symptoms or risks identified at this time. Onset: The symptoms/episode began/occurred yesterday, at 17:30. Anaphylaxis evaluation, no signs or symptoms of anaphylaxis were noted. Initial Sepsis Screen: Does the patient meet any 2 criteria? No. Patient's initial sepsis screen is negative. Does the patient have a suspected source of infection? No. Patient's initial sepsis screen is negative. Risk Assessment: Do you want to hurt yourself or someone else? Patient reports no desire to harm self or others. Onset of symptoms was November 21, 2020 at 17:30. Care prior to arrival: None. Transition of care: patient was not received from another setting of care. 19:01 Acuity: JASMIN 2 sg 19:01 Method Of Arrival: Wheelchair sg Historical: - Allergies: 19:05 No Known Allergies; sg - PMHx: 19:05 Hypothyroidism; sg - PSHx: 19:05 ; sg - Immunization history:: Adult Immunizations up to date. - Social history:: Smoking status: Patient denies any tobacco usage or history of. - Family history:: not pertinent. Screenin:58 Abuse screen: Denies threats or abuse. Denies injuries from another. Nutritional rr5 screening: No deficits noted. Tuberculosis screening: No symptoms or risk factors identified. Fall Risk IV access (20 points). Gait- Impaired (20 pts.). Total Griffiths Fall Scale indicates Low Risk Score (25-44 pts). Fall prevention measures have been instituted. Side Rails Up X 2 Frequent Obs/Assesments occuring As available Patient and Family Educated on Fall Prevention Program and strategies. Assessment: 19:30 General: Appears in no apparent distress. uncomfortable, Behavior is calm, cooperative, rr5 appropriate for age. 19:30 Pain: Complains of pain in right arm Pain currently is 10 out of 10 on a pain scale. rr5 Quality of pain is described as aching, Pain began gradually, Is intermittent. Neuro: Level of Consciousness is awake, alert, obeys commands, Oriented to person, place, time, situation. Cardiovascular: Capillary refill < 3 seconds Patient's skin is warm and dry. Respiratory: Airway is patent Respiratory effort is even, unlabored, Respiratory pattern is regular, symmetrical, GI: No signs and/or symptoms were reported involving the gastrointestinal system. : No signs and/or symptoms were reported regarding the genitourinary system. EENT: No signs and/or symptoms were reported regarding the EENT system. Derm: Skin is intact, is healthy with good turgor, Skin temperature is warm. Musculoskeletal: Capillary refill < 3 seconds, Reports pain in right arm Pain is 10 out of 10 on a pain scale. 20:35 Reassessment: Patient appears in no apparent distress at this time. Patient and/or rr5 family updated on plan of care and expected duration. Pain level reassessed. Patient is alert, oriented x 3, equal unlabored respirations, skin warm/dry/pink. awaiting for results. 21:30 Reassessment: Patient appears in no apparent distress at this time. Patient is alert, rr5 oriented x 3, equal unlabored respirations, skin warm/dry/pink. Patient states symptoms have improved. 22:00 Reassessment: Patient appears in no apparent distress at this time. verified to ED rr5 provider CT negative, can give aspirin. patient is for admission. 23:08 Reassessment: Patient appears in no apparent distress at this time. Patient is alert, rr5 oriented x 3, equal unlabored respirations, skin warm/dry/pink. assisted by daughter at bedside patient voided. 11/23 00:30 Reassessment: Patient appears in no apparent distress at this time. Patient is alert, rr5 oriented x 3, equal unlabored respirations, skin warm/dry/pink. 01:30 Reassessment: Patient appears in no apparent distress at this time. No changes from rr5 previously documented assessment. 02:30 Reassessment: Patient appears in no apparent distress at this time. Patient is alert, rr5 oriented x 3, equal unlabored respirations, skin warm/dry/pink. 03:27 Reassessment: Patient appears in no apparent distress at this time. resting eyes closed rr5 breathing spontaneously at room. 03:29 Reassessment: [id number] dianna [id number] tato daughter. rr5 Vital Signs: 11/22 19:01 BP 142 / 80; Pulse 76; Resp 16; Temp 97.9; Pulse Ox 100% on R/A; Pain 6/10; sg 19:57 Weight 75.75 kg; rr5 21:20 BP 149 / 89; Pulse 73; Resp 15; Pulse Ox 98% ; Pain 8/10; rr5 22:00 BP 139 / 70; Pulse 79; Resp 16; Pulse Ox 97% ; rr5 23:00 BP 141 / 75; Pulse 70; Resp 19; Pulse Ox 99% ; rr5 11/23 00:20 BP 133 / 75; Pulse 63; Resp 17; Pulse Ox 95% ; rr5 01:30 BP 118 / 79; Pulse 61; Resp 16; Pulse Ox 95% ; rr5 02:30 BP 125 / 68; Pulse 63; Resp 17; Pulse Ox 97% ; rr5 03:26 BP 110 / 62; Pulse 57; Resp 16; Pulse Ox 95% ; rr5 NIH Stroke Scale Scores: 11/22 19:43 NIHSS Score: 1 [facility] ED Course: 18:27 Patient arrived in ED. as 19:00 Arm band placed on. 19:05 Triage completed. 19:13 Gerard Martinez MD is Attending Physician. [facility] 19:47 Joe Rojo RN is Primary Nurse. rr5 19:57 COVID swab sent to lab. Inserted saline lock: 20 gauge in left forearm, using aseptic rr5 technique. Blood collected. 19:58 Patient has correct armband on for positive identification. Placed in gown. Bed in low rr5 position. Call light in reach. Side rails up X2. site monitor on. Pulse ox on. NIBP on. 20:25 XRAY Chest (1 view) In Process Unspecified. EDMS 20:26 Shoulder Right (2 View) XRAY In Process Unspecified. EDMS 20:40 ultrasound at bedside. rr5 20:44 US Carotid Artery Bilateral In Process Unspecified. EDMS 21:01 CT Head C Spine In Process Unspecified. EDMS 21:02 CT Aorta for Dissection In Process Unspecified. EDMS 21:50 Urine collected: clean catch specimen, clear. rr5 21:53 Mari Barnes MD is Hospitalizing Provider. cp 23:09 No provider procedures requiring assistance completed. Patient admitted, IV remains in rr5 place. intact, No redness/swelling at site. 11/23 05:30 Shoulder immobilizer applied on right shoulder. rr5 07:17 Primary Nurse role handed off by Joe Rojo RN bd Administered Medications: 11/22 20:15 Drug: NS 0.9% 1000 ml Route: IV; Rate: 1 bolus; Site: left antecubital; rr5 23:10 Follow up: Response: No adverse reaction; IV Status: Completed infusion; IV Intake: rr5 1000ml 20:30 Drug: Zofran (Ondansetron) 4 mg Route: IVP; Site: left antecubital; rr5 21:30 Follow up: Response: No adverse reaction rr5 20:32 Drug: morphine 2 mg {Note: rass 0.} Route: IVP; Site: left antecubital; rr5 21:35 Follow up: Response: No adverse reaction; Pain is decreased; RASS: Alert and Calm (0) rr5 20:40 Drug: foLIC Acid 1 mg Route: IVPB; Site: left antecubital; rr5 21:40 Follow up: Response: No adverse reaction; IV Status: Completed infusion rr5 22:00 Drug: Aspirin Chewable Tablet 324 mg Route: PO; rr5 23:10 Follow up: Response: No adverse reaction rr5 11/23 04:00 Drug: morphine 2 mg {Note: rass 0.} Route: IVP; Site: right forearm; rr5 05:14 Follow up: Response: No adverse reaction; Pain is decreased; RASS: Alert and Calm (0) rr5 Intake: 11/22 23:10 IV: 1000ml; Total: 1000ml. rr5 Outcome: 21:54 Decision to Hospitalize by Provider. cp 23:09 Admitted to ER Hold. Please see [facility] for further documentation. rr5 23:09 Condition: stable 23:09 Instructed on the need for admit. 11/23 12:10 Patient left the ED. aa5 NIH Stroke Scale - NIH Stroke Score Date: 11/22/2020 Time: 19:43 Total Score = 1 1a. Level of Consciousness (LOC) - 0(Alert) 1b. Level of Consciousness (LOC) (Year \T\ Age) - 0(Both) 1c. LOC Commands (Open \T\ Closes Eyes/Drawbench Operator Helper) - 0(Both) 2. Best Gaze (Lateral Gaze Paresis) - 0(Normal) 3. Visual Field Loss - 0(No visual loss) 4. Facial Palsy - 0(Normal) 5a. Left Arm: Motor (10-second hold) - 0(No drift) 5b. Right Arm: Motor (10-second hold) - 0(No drift) 6a. Left Leg: Motor (5-second hold - always test supine) - 0(No drift) 6b. Right Leg: Motor (5-second hold - always test supine) - 0(No drift) 7. Limb Ataxia (finger/nose \T\ heel/lopez - test with eyes open) - 1(Present in one limb) 8. Sensory Loss (pinprick arms/legs/face) - 0(Normal) 9. Best Language: Aphasia (description/naming/reading) - 0(No aphasia) 10. Dysarthria (speech clarity - read or repeat words) - 0(Normal) 11. Extinction and Inattention (visual/tactile/auditory/spatial/personal) - 0(No abnormality) Initials: lucio Signatures: Dispatcher [employer] EDSangeetha Gonzalez Steven, RN RN sg Anderson, Corey, MD MD cha Martinez, Amelia as Calderon, Audri, RN RN aa5 Gerard Rush PA PA cp Roque, Raymond, STEVEN RN rr5
[2020-11-22] MEDS ORDERED: ONDANSETRON 4 MG/2 ML VIAL IV PRN (22:02)
[2020-11-22] MEDS ORDERED: ACETAMINOPHEN 500 MG TAB PO PRN (22:02)
[2020-11-22 22:17] LABS: Urine Blood NEGATIVE (NEG); Urine Glucose NEGATIVE (NEG); Urine Protein NEGATIVE (NEG); Urine Specific Gravity 1.015 (1.005-1.030)
--- NOTE | 2020-11-22 22:19 | P.HP ---
Certification for Inpatient Patient admitted to: Observation With expected LOS: <2 Midnights Patient will require the following post-hospital care: None Practitioner: I am a practitioner with admitting privileges, knowledge of patient current condition, hospital course, and medical plan of care. Services: Services provided to patient in accordance with Admission requirements found in Title 42 Section 412.3 of the Code of Federal Regulations Patient History Date of Service: 11/22/20 Reason for admission: Right chest and arm pain History of Present Illness: 60-year-old female with past medical history of hypertension, thyroid disease admitted after presenting with right hand pain and weakness. Patient states she was having dysuria plan urinary symptoms and has seen her urologist that Dr. Tejada now on was started on Levaquin 2 days ago. After which see subsequent developed intense pain over the right shoulder radiating to the neck. She also admits to generalized weakness and malaise. She denies any left-sided chest pain. She presented because of persistent symptoms. Images studies shows negative CT of the neck for dissection. Right shoulder x-ray shows calcific tendinitis. Head CT was negative. Patient denies any fever or chills. She denies any cough she has been admitted for rule out chest pain as well as right shoulder pain. Allergies No Known Allergies Allergy (Unverified 12/25/16 23:07) - Past Medical/Surgical History Has patient received pneumonia vaccine in the past: No - Social History Smoking Status: Never smoker Patient receptive to therapy: No Alcohol use: No CD- Drugs: No Caffeine use: No Physical Examination - Physical Exam General: Alert, In no apparent distress, Oriented x3 HEENT: Atraumatic, Normocephalic, PERRLA Neck: Supple, 2+ carotid pulse no bruit, JVD not distended Respiratory: Clear to auscultation bilaterally, Normal air movement, Diminished Cardiovascular: No edema, Normal pulses, Regular rate/rhythm, Normal S1 S2 Gastrointestinal: Normal bowel sounds, Soft and benign, Non-distended Musculoskeletal: Tenderness, Other (redcued range of motion of right shoulder - limited to 30degrees) Neurological: Normal speech, Normal strength at 5/5 x4 extr, Normal tone, Cranial nerves 3-12 intact External genitalia: No edema, No lesions - Studies Laboratory Data (last 24 hrs) 11/22/20 19:50: PT 13.1 H, INR 1.11 11/22/20 19:50: WBC 16.3 H, Hgb 15.1 H, Hct 46.1 H, Plt Count 337 11/22/20 19:50: Sodium 143, Potassium 3.8, BUN 15, Creatinine 1.00, Glucose 109 H, Magnesium 2.7 H, Total Bilirubin 0.6, AST 14 L, ALT 17, Alkaline Phosphatase 108 Assessment and Plan - Problems (Diagnosis) (1) Chest pain Current Visit: Yes Status: Acute - Plan #Chest pain-likely due to right shoulder tendinitis Will do serial set of cardiac enzyme Start lidocaine patch to right shoulder Admit to monitor technician over the next few hr If negative cardiac enzymes patient can discharge in a.m. #Right shoulder pain and weakness- may be due levaquin induced myositis and tenditnitis - c/w to hold off levaquin - will do lidocaine patch - gentle IVF -obtain Covid test to r/o viral myositis #Low TSH - follow free T4 -c/w synthroid #DVT prophylaxis-subcutaneous heparin #advanced directive-patient is full code Dispo -possible home in <24 hrs Discharge Plan: Home - Advance Directives Does patient have a Living Will: No Does patient have a Durable POA for Healthcare: No
[2020-11-22] MEDS ORDERED: HYDRALAZINE HCL 20 MG/ML VIAL IV PRN (22:21)
[2020-11-22] MEDS ORDERED: Oxycodone HCl/Acetaminophen 1 TAB TAB PO PRN (22:21)
[2020-11-22] MEDS ORDERED: LORAZEPAM 0.5 MG TABLET PO PRN (22:21)
[2020-11-22 23:52] LABS: CKMB Creatine Kinase MB < 1.0 ng/mL (0.3-3.6); Troponin I < 0.02 ng/mL (0.0-0.045)
[2020-11-23 04:58] LABS: Absolute Lymphocytes (CBC) 2.4 K/uL (0.7-4.9); Basophils % 0.8 % (0-1.3); Hematocrit 39.9 % (36.0-45.0); Lymphocytes % 22.2 % (15.3-44.8); MPV 9.1 fL (7.6-11.3); RBC Red Blood Cell Count 4.45 M/uL (3.86-4.86)
[2020-11-23] MEDS: HEPARIN 5000 UNIT/ML 1 ML VIAL SQ SCH ×2 (05:00→09:00)
[2020-11-23] MEDS: LIDOCAINE 4% PATCH TOP SCH ×2 (05:00→09:36)
[2020-11-23] MEDS ORDERED: MORPHINE 2 MG/ML SYR ONE (05:05)
[2020-11-23 05:22] LABS: Albumin 3.2 g/dL (3.4-5.0); Bilirubin Total 0.6 mg/dL (0.2-1.0); Potassium 3.8 mmol/L (3.5-5.1); Protein, Total 7.1 g/dL (6.4-8.2)
[2020-11-23] MEDS ORDERED: LIDOCAINE 4% PATCH ONE ×2 (05:34→09:48)
[2020-11-23] MEDS ORDERED: HEPARIN 5000 UNIT/ML 1 ML VIAL ONE (05:34)
[2020-11-23 06:33] VITALS: BMI 29.2
[2020-11-23] MEDS ORDERED: ASPIRIN EC 81 MG TAB PO SCH (09:00)
--- NOTE | 2020-11-23 09:38 | P.DS ---
Admission Date: 11/22/20 Discharge Date: 11/23/20 Disposition: ROUTINE DISCHARGE Discharge Condition: FAIR Reason for Admission: Right chest and arm pain - Problems (1) Chest pain Status: Acute (2) Hypertension Status: Acute (3) Hypothyroidism Status: Acute Brief History of Present Illness: 60-year-old woman with a history of hypertension and hypothyroidism presented to the emergency department with a complaint of right shoulder pain which per patient started after she took a few doses of Levaquin prescribed for UTI. She also complained of associated chest pain. Her troponin in the ED was negative. EKG unremarkable. Patient was hospitalized for ACS rule out. Hospital Course: Troponin trended came back negative. Her pain was mostly located in the right shoulder. The right shoulder was tender to palpation and there was decreased range of motion due to pain. Her right upper extremity was placed in a sling. ACS has been ruled out. Patient at the moment has no chest pain. Her pain is related to Levaquin induced tendinitis. Lidocaine patch and Aleve are ordered to manage her pain. Her TSH level was low indicating hyperthyroid state. Patient is on Synthroid supplementation. She is informed to follow with her PCP as soon as possible for dose adjustment. Patient is deemed clinically stable for discharge. General: Alert, In no apparent distress, Oriented x3 Neck: Supple Respiratory: Clear to auscultation bilaterally, Normal air movement Cardiovascular: No edema, Regular rate/rhythm, Normal S1 S2 Gastrointestinal: Soft and benign, Non-distended, No tenderness Musculoskeletal: Tenderness (Right shoulder joint) Integumentary: No rashes Neurological: Normal strength at 5/5 x4 extr Laboratory Data at Discharge: WBC 10.9 K/uL (4.3-10.9) D 11/23/20 04:25 Hgb 13.3 g/dL (12.0-15.0) 11/23/20 04:25 Hct 39.9 % (36.0-45.0) 11/23/20 04:25 Plt Count 302 K/uL (152-406) 11/23/20 04:25 PT 13.1 SECONDS (9.5-12.5) H 11/22/20 19:50 INR 1.11 11/22/20 19:50 Sodium 144 mmol/L (136-145) 11/23/20 04:25 Potassium 3.8 mmol/L (3.5-5.1) 11/23/20 04:25 BUN 16 mg/dL (7-18) 11/23/20 04:25 Creatinine 0.87 mg/dL (0.55-1.3) 11/23/20 04:25 Glucose 81 mg/dL (74-106) 11/23/20 04:25 Magnesium 2.7 mg/dL (1.8-2.4) H 11/22/20 19:50 Total Bilirubin 0.6 mg/dL (0.2-1.0) 11/23/20 04:25 AST 16 U/L (15-37) 11/23/20 04:25 ALT 15 U/L (12-78) 11/23/20 04:25 Alkaline Phosphatase 88 U/L (45-117) 11/23/20 04:25 Troponin I < 0.02 ng/mL (0.0-0.045) 11/23/20 04:25 Triglycerides 99 mg/dL (<150) 11/23/20 04:25 Cholesterol 199 mg/dL (<200) 11/23/20 04:25 HDL Cholesterol 53 mg/dL (40-60) 11/23/20 04:25 Cholesterol/HDL Ratio 3.75 11/23/20 04:25 Home Medications: Codeine/APAP [Tylenol W/Codeine #3 tab] 1 tab PO Q6HP PRN #30 tab 11/23/20 Lidocaine 4% Patch [Lidoderm 5% Patch*] 1 patch TOP DAILY #14 patch 11/23/20 Naproxen Sodium 550 mg PO BID #10 tablet 11/23/20 New Medications: Codeine/APAP [Tylenol W/Codeine #3 tab] 1 tab PO Q6HP PRN #30 tab PRN Reason: Pain Lidocaine 4% Patch [Lidoderm 5% Patch*] 1 patch TOP DAILY #14 patch Naproxen Sodium 550 mg PO BID #10 tablet Followup: Shanae MONSIVAISOT [Primary Care Provider] - 1-2 Weeks (call to schedule an appointment with your PCP)
[2020-11-23] MEDS ORDERED: ASPIRIN EC 81 MG TAB PO ONE (09:48)
[2020-11-23] MEDS ORDERED: HEPARIN 5000 UNIT/ML 1 ML VIAL SQ SCH (13:00)
[2020-11-23 13:06] VITALS: BP 130/80; TEMP 99; O2SAT 98
--- NOTE | 2020-11-23 16:11 | EKG ---
Test Date: 2020-11-22 Test Time: 19:41:07 Trial Paralegal: RR MEASUREMENT RESULTS: Intervals: Rate: 80 AL: 148 QRSD: 80 QT: 392 QTc: 452 [place]: P: 77 AL: 148 QRS: 60 T: 46 INTERPRETIVE STATEMENTS: Normal sinus rhythm Nonspecific ST abnormality Abnormal ECG Compared to ECG 05/22/2005 21:15:00 ST (T wave) deviation now present Electronically Signed On 11-23-20 16:08:44 [employer]UT[employer] by Gamaliel Amezcua
== END 2020-11-23 12:10 | disposition home or self-care (01) ==
LOC: ER 18:25 → ERHOLD 22:05
PROVIDERS: ADMIT Internal Medicine; ATTEND Internal Medicine
DX: R07.9 Chest pain, unspecified (principal); M25.511 Pain in right shoulder; I10 Essential (primary) hypertension; E03.9 Hypothyroidism, unspecified; N39.0 Urinary tract infection, site not specified; Z20.822 Contact with and (suspected) exposure to COVID-19; R94.31 Abnormal electrocardiogram [ECG] [EKG]
CPT/HCPCS: 36415; 70450; 71045; 71275; 72125; 74175; 80048; 80053; 80061; 80076; 81003; 82553; 83735; 83880; 84436; 84439; 84443; 84484; 85025; 85610; 85652; 87086; 87088; 93005; 93880; 99285; G0378; J1644; J2270; J2405; J7030; Q9967; U0003

== ENCOUNTER 2024-03-04 09:59 | Emergency (ER) | payer OTHER ==
--- NOTE | 2024-03-04 10:40 | RAD REPORT ---
EXAM DESCRIPTION: Ivana Single View03/04/2024 10:31 am CLINICAL HISTORY: Chest pain COMPARISON: 2020 FINDINGS: The lungs appear clear of acute infiltrate. The heart is normal size IMPRESSION: No acute abnormalities displayed
[2024-03-04 11:22] LABS: Absolute Basophils 0.1 K/uL (0-0.5); Absolute Lymphocytes (CBC) 2.5 K/uL (0.7-4.9); Absolute Monocytes 0.8 K/uL (0.1-1.3); Absolute Neutrophil 7.4 K/uL (1.8-8.0); Basophils % 0.7 % (0-1.3); Eosinophils % 0.4 % (0-4.4); Hematocrit 42.3 % (36.0-45.0); MCH 30.9 pg (27.0-35.0); MCV 93.8 fL (80-100); MPV 8.5 fL (7.6-11.3); Monocytes % 7.6 % (3.3-12.3); Neutrophils % 68.3 % (41.7-73.7); Nucleated Red Blood Cells % 0.1 % (0-0); Platelets 303 thou/uL (152-406); RBC Red Blood Cell Count 4.52 M/uL (3.86-4.86); Red Cell Distribution Width 13.6 % (12.1-15.2)
[2024-03-04 11:52] LABS: ALT/SGPT 22 U/L (13-56); AST/SGOT 14 U/L (15-37); Albumin 3.4 g/dL (3.4-5.0); Albumin/Globulin Ratio 0.9 (1.1-1.8); Alkaline Phosphatase 97 U/L (45-117); Anion Gap 10.8 mEq/L (5.0-15.0); BUN Blood Urea Nitrogen 24 mg/dL (7-18); Bicarbonate 29 mEq/L (21-32); Bilirubin Total 0.5 mg/dL (0.2-1.0); Glomerular Filtration Rate 68 ml/min (=/>90); Glucose Level 94 mg/dL (74-106); Magnesium 2.3 mg/dL (1.6-2.4); NT PRO-BNP 79 pg/mL (<125); Potassium 3.8 mEq/L (3.5-5.1); Protein, Total 7.4 g/dL (6.4-8.2); Sodium Level 141 mEq/L (136-145); Thyroid Stimulating Hormone 0.914 uIU/mL (0.358-3.740); Troponin High Sensitivity 3.7 pg/mL (<58.9)
[2024-03-04 11:58] LABS: Bilirubin Direct < 0.1 mg/dL (0-0.2); Bilirubin Indirect, Calculated ND mg/dL (0.2-0.8)
--- NOTE | 2024-03-04 12:59 | EDPHYS ---
Physician Documentation [facility] Name: Bambi Raymundo Age: 64 yrs Sex: Female : 1960 Arrival Date: 03/04/2024 Time: 09:59 Bed 15 Private MD: ED Physician Milton Padgett HPI: 03/04 10:23 This 64 yrs old Female presents to ER via Ambulatory with complaints of High sp3 Blood Pressure and "feeling weird". 10:23 64-year-old female with history of hypothyroidism presents to the ED for chief sp3 complaint "feeling weird" and having a blood pressure measured at home subsequent to feeling this way at 174/90. Patient has no history of hypertension and denies any headache, chest pain, shortness of breath, abdominal pain, back pain or any other anginal equivalents other than left-sided neck pain that she states she has been having off and on for 1 week. No prior cardiac history noted. No recent changes in her Synthroid dosing. Patient is on no other medications, does not smoke, and no significant family history.. Historical: - Allergies: 10:19 No Known Allergies; iw - PMHx: 10:19 Hypothyroidism; iw - Immunization history:: Adult Immunizations up to date. - Infectious Disease History:: Denies. - Social history:: Smoking status: Patient denies any tobacco usage or history of. ROS: 10:27 Constitutional: Negative for fever, chills, and weight loss, Eyes: Negative for injury, sp3 pain, redness, and discharge, ENT: Negative for injury, pain, and discharge, Neck: Negative for injury, pain, and swelling, Respiratory: Negative for shortness of breath, cough, wheezing, and pleuritic chest pain, Abdomen/GI: Negative for abdominal pain, nausea, vomiting, diarrhea, and constipation, Back: Negative for injury and pain, MS/Extremity: Negative for injury and deformity, Skin: Negative for injury, rash, and discoloration, Neuro: Negative for headache, weakness, numbness, tingling, and seizure, Psych: Negative for depression, anxiety, suicide ideation, homicidal ideation, and hallucinations, Allergy/Immunology: Negative for hives, rash, and allergies, Endocrine: Negative for neck swelling, polydipsia, polyuria, polyphagia, and marked weight changes, Hematologic/Lymphatic: Negative for swollen nodes, abnormal bleeding, and unusual bruising, 10:27 All other systems are negative, Exam: 10:28 Constitutional: This is a well developed, well nourished patient who is awake, alert, sp3 and in no acute distress. Head/Face: Normocephalic, atraumatic. Eyes: Pupils equal round and reactive to light, extra-ocular motions intact. Lids and lashes normal. Conjunctiva and sclera are non-icteric and not injected. Cornea within normal limits. Periorbital areas with no swelling, redness, or edema. ENT: Nares patent. No nasal discharge, no septal abnormalities noted. External auditory canals are clear. Oropharynx with no redness, swelling, or masses, exudates, or evidence of obstruction, uvula midline. Mucous membranes moist. Neck: Trachea midline, no thyromegaly or masses palpated, and no cervical lymphadenopathy. Supple, full range of motion without nuchal rigidity, or vertebral point tenderness. No Meningismus. Chest/axilla: Normal chest wall appearance and motion. Nontender with no deformity. No lesions are appreciated. Cardiovascular: Regular rate and rhythm with a normal S1 and S2. No gallops, murmurs, or rubs. Normal PMI, no JVD. No pulse deficits. Respiratory: Lungs have equal breath sounds bilaterally, clear to auscultation and percussion. No rales, rhonchi or wheezes noted. No increased work of breathing, no retractions or nasal flaring. Abdomen/GI: Soft, non-tender, with normal bowel sounds. No distension or tympany. No guarding or rebound. No evidence of tenderness throughout. Back: No spinal tenderness. No costovertebral tenderness. Full range of motion. Skin: Warm, dry with normal turgor. Normal color with no rashes, no lesions, and no evidence of cellulitis. MS/ Extremity: Pulses equal, no cyanosis. Neurovascular intact. Full, normal range of motion. Neuro: Awake and alert, GCS 15, oriented to person, place, time, and situation. Cranial nerves II-XII grossly intact. Motor strength 5/5 in all extremities. Sensory grossly intact. Cerebellar exam normal. Normal gait. Psych: Awake, alert, with orientation to person, place and time. Behavior, mood, and affect are within normal limits. 11:14 ECG was reviewed by the Attending Physician. EKG demonstrates normal sinus rhythm at 62 sp3 bpm with normal intervals, normal QRS, normal axis, normal axis ST segments without evidence of acute ischemia. Vital Signs: 10:18 BP 155 / 70; Resp 16; Temp 97.5; Pulse Ox 100% on R/A; iw 12:30 BP 120 / 52; Pulse 54; Resp 16; Pulse Ox 98% ; bp 13:15 BP 118 / 56; Pulse 53; Resp 16; Pulse Ox 96% ; bp MDM: 10:13 Patient medically screened. sp3 10:28 Data reviewed: vital signs, nurses notes, old medical records, lab test result(s), EKG, sp3 radiologic studies. ED course: 64-year-old female with vague symptoms and possible anginal equivalent. No CAD history noted. Differential diagnosis includes ACS spectrum, viral syndrome, GI pathology including gastritis as patient has a gastric sleeve without complication for 4 years, among others. Workup will include EKG, chest x-ray and general laboratory values including troponin and TSH. Disposition pending workup and patient course with possible discharge home after second troponin versus 23-hour observation.. 12:57 ED course: Repeat troponin is negative and patient is remains chest pain-free. We will sp3 safely discharge patient home at this time.. 03/04 10:21 Order name: Basic Metabolic Panel; Complete Time: 11:58 03/04 10:21 Order name: CBC with Diff; Complete Time: 11:58 03/04 10:21 Order name: LFT's; Complete Time: 11:58 03/04 10:21 Order name: Magnesium; Complete Time: 11:58 03/04 10:21 Order name: NT PRO-BNP; Complete Time: 11:58 03/04 10:21 Order name: Troponin HS; Complete Time: 11:58 03/04 10:21 Order name: TSH; Complete Time: 11:58 03/04 11:59 Order name: Troponin High Sensitivity: Draw 2 hours from 1st; Complete Time: 12:57 3 03/04 10:21 Order name: XRAY Chest (1 view); Complete Time: 11:05 03/04 10:21 Order name: EKG; Complete Time: 10:21 03/04 10:21 Order name: Cardiac monitoring; Complete Time: 11:00 sp3 03/04 10:21 Order name: EKG - Nurse/Tech; Complete Time: 11:00 sp3 03/04 10:21 Order name: IV Saline Lock; Complete Time: 11:00 sp3 03/04 10:21 Order name: Labs collected and sent; Complete Time: 11:00 sp3 03/04 10:21 Order name: O2 Per Protocol; Complete Time: 10:24 sp3 03/04 10:21 Order name: O2 Sat Monitoring; Complete Time: :24 sp3 Administered Medications: No medications were administered Disposition Summary: 03/04/24 12:58 Discharge Ordered Notes: Location: Home sp3 Condition: Stable sp3 Diagnosis - Chest pain sp3 Followup: sp3 - With: Private Physician - When: Upon discharge from the Emergency Department - Reason: Continuance of care Discharge Instructions: - Discharge Summary Sheet sp3 - Nonspecific Chest Pain, Adult sp3 Forms: - Medication Reconciliation Form sp3 - Antibiotic Education sp3 - Prescription Opioid Use sp3 - Patient Portal Instructions sp3 - Leadership Thank You Letter sp3 Signatures: Dispatcher [employer] EDMS Karen Luna RN RN iw Mando Liriano RN RN bp Milton Padgett MD MD sp3 Corrections: (The following items were deleted from the chart) 10:21 10:21 BASIC METABOLIC PANEL+C.LAB.BRZ ordered. EDMS EDMS 10:21 10:21 CBC+H.LAB.BRZ ordered. EDMS EDMS 10:21 10:21 HEPATIC FUNCTION+C.LAB.BRZ ordered. EDMS EDMS 10:21 10:21 MAGNESIUM+C.LAB.BRZ ordered. EDMS EDMS 10:21 10:21 PROBNP+C.LAB.BRZ ordered. EDMS EDMS 10:21 10:21 Troponin High Sensitivity+C.LAB.BRZ ordered. EDMS EDMS 10:21 10:21 THYROID STIMULAT HORMONE+C.LAB.BRZ ordered. EDMS EDMS 12:00 12:00 Troponin High Sensitivity+C.LAB.BRZ ordered. EDMS EDMS
--- NOTE | 2024-03-04 12:59 | ER ---
Nurse's Notes [facility] Name: Bambi Raymundo Age: 64 yrs Sex: Female : 1960 Arrival Date: 03/04/2024 Time: 09:59 Bed 15 Private MD: Diagnosis: Chest pain Presentation: 03/04 10:18 Chief complaint: Patient states: left sided neck [pain since Saturday, was not feeling iw well today and her BP was running high , she wanted to get checked out. Coronavirus screen: At this time, the client does not indicate any symptoms associated with coronavirus-19. Ebola Screen: Patient negative for fever greater than or equal to 101.5 degrees Fahrenheit, and additional compatible Ebola Virus Disease symptoms Patient denies exposure to infectious person. Patient denies travel to an Ebola-affected area in the 21 days before illness onset. No symptoms or risks identified at this time. Initial Sepsis Screen: Does the patient meet any 2 criteria? No. Patient's initial sepsis screen is negative. Does the patient have a suspected source of infection? No. Patient's initial sepsis screen is negative. Risk Assessment: Do you want to hurt yourself or someone else? Patient reports no desire to harm self or others. Onset of symptoms was March 04, 2024. 10:18 Method Of Arrival: Ambulatory iw 10:18 Acuity: JASMIN 3 iw Triage Assessment: 10:30 General: Appears in no apparent distress. comfortable, Behavior is calm, cooperative, bp appropriate for age. Pain: Denies pain. Cardiovascular: Rhythm is sinus rhythm. Historical: - Allergies: 10:19 No Known Allergies; iw - PMHx: 10:19 Hypothyroidism; iw - Immunization history:: Adult Immunizations up to date. - Infectious Disease History:: Denies. - Social history:: Smoking status: Patient denies any tobacco usage or history of. Screenin:30 [facility] ED Fall Risk Assessment (Adult) History of falling in the last 3 months, bp including since admission No falls in past 3 months (0 pts). Abuse screen: Denies threats or abuse. Denies injuries from another. Nutritional screening: No deficits noted. Tuberculosis screening: No symptoms or risk factors identified. Assessment: 10:30 General: SEE TRIAGE NOTE. bp 12:30 Reassessment: Patient appears in no apparent distress at this time. Patient is alert, bp oriented x 3, equal unlabored respirations, skin warm/dry/pink. Vital Signs: 10:18 BP 155 / 70; Resp 16; Temp 97.5; Pulse Ox 100% on R/A; iw 12:30 BP 120 / 52; Pulse 54; Resp 16; Pulse Ox 98% ; bp 13:15 BP 118 / 56; Pulse 53; Resp 16; Pulse Ox 96% ; bp ED Course: 10:01 Patient arrived in ED. rg4 10:07 Milton Padgett MD is Attending Physician. sp3 10:19 Triage completed. iw 10:19 Arm band placed on. iw 10:23 Mando Liriano, RN is Primary Nurse. bp 10:30 Patient has correct armband on for positive identification. bp 10:33 XRAY Chest (1 view) In Process Unspecified. EDMS 11:00 TSH Sent. bp 11:00 Basic Metabolic Panel Sent. bp 11:00 Troponin HS Sent. bp 11:00 NT PRO-BNP Sent. bp 11:00 Magnesium Sent. bp 11:00 LFT's Sent. bp 11:00 CBC with Diff Sent. bp 11:00 Inserted saline lock: 22 gauge in right forearm, using aseptic technique. Blood bp collected. 13:16 No provider procedures requiring assistance completed. IV discontinued, intact, bp bleeding controlled, No redness/swelling at site. Pressure dressing applied. Administered Medications: No medications were administered Medication: 10:30 VIS not applicable for this client. bp Outcome: 12:58 Discharge ordered by . sp3 13:16 Discharged to home ambulatory, with family, bp 13:16 Condition: stable 13:16 Discharge instructions given to patient, Instructed on discharge instructions, follow up and referral plans. Demonstrated understanding of instructions, follow-up care, 13:16 Patient left the ED. bp Signatures: Dispatcher [employer] Karen Dubois, RN RN iw Justina Torres rg4 Mando Liriano, STEVEN RN bp Milton Padgett MD MD sp3
[2024-03-04 14:06] VITALS: BP 118/56; TEMP 97.5; O2SAT 96
--- NOTE | 2024-03-05 16:45 | EKG ---
Test Date: 2024-03-04 Test Time: 10:49:37 Food Safety Officer: BP MEASUREMENT RESULTS: Intervals: Rate: 62 CA: 164 QRSD: 80 QT: 416 QTc: 422 [place]: P: 20 CA: 164 QRS: -23 T: 39 INTERPRETIVE STATEMENTS: Normal sinus rhythm Normal ECG Compared to ECG 11/22/2020 19:41:07 ST (T wave) deviation no longer present Electronically Signed On 03-05-24 16:42:04 CDT by Carlos Hampton
== END 2024-03-04 13:16 | disposition home or self-care (01) ==
LOC: ER 09:59
DX: R07.9 Chest pain, unspecified (principal); E03.9 Hypothyroidism, unspecified
CPT/HCPCS: 36415; 71045; 80048; 80076; 83735; 83880; 84443; 84484; 85025; 93005; 99284